=== PATIENT | male | born 1990 | race Two or more races ===

== ENCOUNTER 2024-02-08 09:13 | Emergency (ER) | payer MEDICAID, SELFPAY ==
[2024-02-08 09:42] VITALS: BP 160/94; PULSE 59; RESP 18; TEMP 36.6; O2SAT 97; BMI 25.1
--- NOTE | 2024-02-08 10:16 | XR_ITS ---
Examination: Right femur 2 views Technique one AP lateral right femur 2 views Exam date and time: February 08, 2024 at 1041 hrs. Indications: Patient fell last week with injury to the femur, femur pain Findings: No acute hip fracture or hip dislocation Shaft of the femur intact Ossification versus calcification 25 mm in the medial thigh Impression: No acute femur fracture
--- NOTE | 2024-02-08 10:17 | PD.EDFALL ---
ED Fall Injury RME/HPI General Chief Complaint: Fall Stated Complaint: Fall right leg pain Time Seen by Provider: 02/08/24 09:49 Arrival date/time: 02/08/24 09:13 This is a 33-year-old male that comes in with complaints of fall approximately 1 week ago. Patient states that he tripped over a broom and fell on top of the broom. Patient has pain to right upper lateral thigh. Patient states it looked swollen previously but no longer swollen. Patient denies any other trauma. Patient denies head and neck pain. Related Data Home Medications ?Medication ?Instructions ?Recorded ?Confirmed aspirin 81 mg tablet,delayed 81 mg PO QDAY 06/02/23 10/27/23 release atorvastatin 20 mg tablet 20 mg PO QDAY 06/02/23 10/27/23 buspirone 5 mg tablet 5 mg PO BID 06/02/23 10/27/23 metoprolol succinate 25 mg 25 mg PO QDAY 06/02/23 10/27/23 tablet,extended release 24 hr Previous Rx's ?Medication ?Instructions ?Recorded ibuprofen 600 mg tablet 600 mg PO Q6H PRN pain #10 tabs 02/08/24 Allergies Allergy/AdvReac Type Severity Reaction Status Date / Time No Known Allergies Allergy Verified 10/27/23 09:44 Review of Systems Review of Systems Systems Reviewed: All systems reviewed, normal except as documented Past Medical History Past Medical History CARDIAC: Positive Cardiac Disorders, Heart Murmur, Hypercholesterolemia and Hypertension PSYCHO/SOCIAL: Positive Anxiety Family History FAMILY HISTORY: Negative Family Cardiac Disorders Surgical History SURGICAL: Negative Cardiac Surgery, Endocrine Surgery, Ear Surgery, Abdominal Surgery or Joint Replacement Social History SMOKING STATUS: Never smoker SUBSTANCE USE: does not use ED Exam General General appearance: Present alert and in no apparent distress Head Head exam: Present atraumatic Eye Eye exam: Present normal appearance, PERRL and EOMI ENT ENT exam: Present normal exam, normal oropharynx and mucous membranes moist Neck Neck exam: Present normal inspection, full ROM and trachea midline Chest Chest inspection: Present normal inspection and symmetric chest wall rise Respiratory Respiratory exam: Present normal lung sounds bilaterally Cardiovascular Cardiovascular exam: Present regular rate, normal rhythm and normal heart sounds Abdominal Exam Abdominal exam: Present soft Extremities Exam Extremities exam: Present normal inspection and full ROM Back Exam Back exam: Present normal inspection and full ROM Neurological Exam Neurological exam: Present alert, oriented X3 and CN II-XII intact Psychiatric Psychiatric exam: Present normal affect and normal mood Skin Skin exam: Present warm, dry, intact and normal color Course Quality Measures none Orders Category Date Time Status XR femur RT 2V Stat Exams 02/08/24 10:16 Completed Acetaminophen Tab [Tylenol ES Tab] Med 02/08/24 10:16 Discontinued 1,000 mg PO X1 ONE HYDROcodone*/APAP 5/325 [[place] 5/325] Med 02/08/24 13:13 Discontinued 1 tab PO X1 ONE Ibuprofen Tab [Motrin Tab] Med 02/08/24 10:16 Discontinued 800 mg PO X1 ONE Vital Signs Vital signs: Vital Signs Temperature 97.9 F 02/08/24 09:42 Pulse Rate 59 L 02/08/24 09:42 Respiratory Rate 18 02/08/24 09:42 Blood Pressure 160/94 H 02/08/24 09:42 Pulse Oximetry (%) 97 02/08/24 09:42 Oxygen Delivery Method Room Air 02/08/24 09:42 Fall MDM Narrative MDM Narrative:: This is a 33-year-old male that comes in with complaints of fall approximately 1 week ago. Patient states that he tripped over a broom and fell on top of the broom. Patient has pain to right upper lateral thigh. Patient states it looked swollen previously but no longer swollen. Patient denies any other trauma. Patient denies head and neck pain. femur x ray: Findings: No acute hip fracture or hip dislocation Shaft of the femur intact Ossification versus calcification 25 mm in the medial thigh Impression: No acute femur fracture Pt given norco, and ibuprofen for pain Patient data External records reviewed:: [facility] previous records Clinical information provided by:: patient Social determinants that could affect healthcare access:: none Patient has the following chronic illnesses:: none How is presenting disease/condition affected by chronic disease/condition?: no chronic disease Evaluation data The following diagnostics were reviewed and interpreted by me:: lab results Lab and/or radiology exams considered but not ordered:: see note Interpretation Summary: see note Medications / Prescriptions Medications or Prescriptions considered but not ordered:: none Medication administrations:: Medication Administration History Discontinued Medications Acetaminophen (Acetaminophen 500 Mg Tablet) 1,000 mg PO X1 ONE Stop: 02/08/24 10:17 Last Admin: 02/08/24 10:21 Dose: 1,000 mg Documented By: OA Hydrocodone Bitart/Acetaminophen (Hydrocodone/Apap 5/325 Tablet) 1 tab PO X1 ONE Stop: 02/08/24 13:14 Last Admin: 02/08/24 13:26 Dose: 1 tab Documented By: JOVANI Ibuprofen (Ibuprofen Tab 400 Mg Tablet) 800 mg PO X1 ONE Stop: 02/08/24 10:17 Last Admin: 02/08/24 10:20 Dose: 800 mg Documented By: JOVANI see mar Consultations Consultation(s) initiated? (list below): No Diagnosis Fall Differential Diagnosis: other (leg fracture, sprain, contusion ) Most likely diagnosis given after review of the tests above:: contusion Admission Indicated Admission indicated?: not indicated Admission Request Was there a request for admission?: No Disposition Plan Disposition Plan: Discharge Discharge Attestation Discharge Attestation: The patient and all family members were given an opportunity to ask questions and understood the discharge instructions. Discharge instructions specifically effects, indications for sooner follow up or return to the emergency department, and the expected course of current diagnosis. Patient condition: Stable Discharge Plan Plan Patient Disposition: HOME (Self Care) Patient condition on transfer: Stable Prescriptions/Referrals Prescriptions/Med Rec: New ibuprofen 600 mg tablet 600 mg PO Q6H PRN (Reason: pain) Qty: 10 0RF No Action buspirone 5 mg Tablet 5 mg PO BID atorvastatin 20 mg Tablet 20 mg PO QDAY aspirin 81 mg Tablet,Delayed Release (Dr/Ec) 81 mg PO QDAY metoprolol succinate 25 mg Tablet Extended Release 24 Hr 25 mg PO QDAY Referrals: Gregorio Dave MD [Primary Care Provider] - In 1 week Problem List Clinical Impression: Contusion of leg, right Patient/Caregiver Discharge Instructions Discharge Activity: activity as tolerated Education Materials: ED Contusion, Lower Extremity Additional Instructions: Follow-up with primary provider in 1 to 2 days. Come back to the emergency room if symptoms change or worsen. Print Language: Belarusian Stand Alone Forms: Renetta Award Info., Patient Portal Info Letter PA/SPED TEACHER Supervising Physician MADHAVI/SPED TEACHER Supervising Physician: keira
[2024-02-08] MEDS: IBUPROFEN TAB 400 MG TABLET 800 MG PO (10:20)
[2024-02-08] MEDS: ACETAMINOPHEN 500 MG TABLET 1000 MG PO (10:21)
[2024-02-08] MEDS: HYDROcodone/APAP 5/325 TABLET 1 TAB PO (13:26)
== END 2024-02-08 13:42 | disposition home or self-care (01) ==
PROVIDERS: Emergency Provider Emergency Medicine; PCP Family Medicine
DX: S70.11XA Contusion of right thigh, initial encounter (principal); W01.0XXA Fall on same level from slipping, tripping and stumbling without subsequent striking against object, initial encounter
CPT/HCPCS: 73552; 99283; A9270

== ENCOUNTER 2024-02-12 00:14 | Emergency (ER) | payer MEDICAID, SELFPAY ==
[2024-02-12 00:15] VITALS: BMI 25.1
--- NOTE | 2024-02-12 00:51 | XR_ITS ---
Examination: Right femur 2 views Technique one AP lateral right femur 2 views Exam date and time: February 12, 2024 0120 hours INDICATIONS: Patient slipped and fell 1.5 hours ago with injury to the femur, femur pain FINDINGS: No hip fracture or hip dislocation Shaft of the femur intact Ossification in the soft tissue medial thigh IMPRESSION: No acute fracture
[2024-02-12 00:55] VITALS: BP 151/101; PULSE 59; RESP 19; TEMP 36.7; O2SAT 98
[2024-02-12] MEDS: IBUPROFEN TAB 400 MG TABLET 800 MG PO (01:00)
--- NOTE | 2024-02-12 04:39 | PD.EDLOWEX ---
Lower Extremity Injury RME/HPI General Chief Complaint: Extremity Injury, Lower Stated Complaint: RT KNEE PAIN, S/P FALL X1 WEEK Time Seen by Provider: 02/12/24 00:43 Arrival date/time: 02/12/24 00:14 RME / HPI RME / HPI Narrative: This section includes all my notes and documentations, including HPI, PE, and ED course. Tod Zelaya MD HPI: 33-year-old male here to be evaluated with right leg injury just prior to arrival. While horsing around, he almost fell to the right. Ever since, he reports severe pain in the right leg, especially in the right knee. Has trouble weightbearing due to the pain. No other complaints. ROS: All negative except as documented in HPI. Physical Exam: General: Alert and oriented. No acute distress when remaining still. Eyes: Conjunctivae and lids clear. ENT: No nasal congestion. Neck: Supple. Lungs: No respiratory distress. Back: No CVA tenderness. Skin: Warm and dry. Neuro: Alert and oriented X 3. Right Leg: Equivocal tenderness in the proximal half of the lower leg. Equivocal tenderness in the right knee with edema and limited range of motion. My interpretation of the right femur x-rays is no acute fracture, official radiology report is pending. At this point, diagnoses include right leg strain and right knee sprain. Treatment here included knee immobilizer and crutches and ibuprofen. Recommended a trial of conservative treatment. Based on my best medical judgment, made decision no further evaluation or treatment indicated at this time. Patient understands and agrees to the discharge instructions customized and printed, see below. Discharge Instructions from Dr. Zelaya: --After evaluation, there is no evidence of any broken bone. --You sprained your right leg and right knee.? This means small tears to your soft structures, such as [id number]-cartilage.? --To help the healing process, no weight bearing (knee immobilizer and crutches) and elevate above waist level for 3 days as much as possible.?? --Apply ice for 20 minutes every 2-3 hours today and tomorrow.? --Take Ibuprofen 800 mg every 6-8 hours today and tomorrow to help decrease swelling then as needed.? --Most importantly, see a private doctor on 02/16/2024 for recheck and further care. Ask to review the official radiology reports, to make sure you receive all necessary follow-ups and monitoring. If you are not better, you will need more care not available here in the ER--such as MRI imaging.? To make sure you don't have major tears needing surgery--cannot see big tears on x-rays.?? --Seek immediate medical care with any concerns.?? Tod Zelaya MD Related Data Home Medications ?Medication ?Instructions ?Recorded ?Confirmed aspirin 81 mg tablet,delayed 81 mg PO QDAY 06/02/23 10/27/23 release atorvastatin 20 mg tablet 20 mg PO QDAY 06/02/23 10/27/23 buspirone 5 mg tablet 5 mg PO BID 06/02/23 10/27/23 metoprolol succinate 25 mg 25 mg PO QDAY 06/02/23 10/27/23 tablet,extended release 24 hr Previous Rx's ?Medication ?Instructions ?Recorded ibuprofen 600 mg tablet 600 mg PO Q6H PRN pain #10 tabs 02/08/24 Allergies Allergy/AdvReac Type Severity Reaction Status Date / Time No Known Allergies Allergy Verified 10/27/23 09:44 Course Quality Measures none Orders Category Date Time Status Apply knee immobilizer NOW Care 02/12/24 01:33 Active Crutches .NOW Care 02/12/24 01:33 Active Miscellaneous Nursing Order NOW Care 02/12/24 00:51 Active XR femur RT 2V Stat Exams 02/12/24 00:51 Taken Ibuprofen Tab [Motrin Tab] Med 02/12/24 00:51 Discontinued 800 mg PO X1 ONE Vital Signs Vital signs: Vital Signs Temperature 98.1 F 02/12/24 00:55 Pulse Rate 59 L 02/12/24 00:55 Respiratory Rate 19 02/12/24 00:55 Blood Pressure 151/101 H 02/12/24 00:55 Pulse Oximetry (%) 98 02/12/24 00:55 Oxygen Delivery Method Room Air 02/12/24 00:55 Extremity Injury, Lower Patient data External records reviewed:: [facility] previous records Clinical information provided by:: patient Social determinants that could affect healthcare access:: none Patient has the following chronic illnesses:: None How is presenting disease/condition affected by chronic disease/condition?: no chronic disease Evaluation data The following diagnostics were reviewed and interpreted by me:: radiology exam(s) Lab and/or radiology exams considered but not ordered:: None Interpretation Summary: Right leg/knee sprain/strain Medications / Prescriptions Medications or Prescriptions considered but not ordered:: None Medication administrations:: Medication Administration History Discontinued Medications Ibuprofen (Ibuprofen Tab 400 Mg Tablet) 800 mg PO X1 ONE Stop: 02/12/24 00:52 Last Admin: 02/12/24 01:00 Dose: 800 mg Documented By: Ibuprofen Consultations Consultation(s) initiated? (list below): No Diagnosis Extremity Injury, Lower Differential Diagnosis: other (Right leg/knee sprain/strain/contusion/fracture) Most likely diagnosis given after review of the tests above:: Right leg/knee sprain/strain Admission Indicated Admission indicated?: not indicated Explain why admission is indicated or not indicated:: Admission criteria not met Admission Request Was there a request for admission?: No Disposition Plan Disposition Plan: Discharge Discharge Attestation Discharge Attestation: The patient and all family members were given an opportunity to ask questions and understood the discharge instructions. Discharge instructions specifically effects, indications for sooner follow up or return to the emergency department, and the expected course of current diagnosis. Patient condition: Stable Discharge Plan Plan Patient Disposition: HOME (Self Care) Prescriptions/Referrals Prescriptions/Med Rec: No Action buspirone 5 mg Tablet 5 mg PO BID atorvastatin 20 mg Tablet 20 mg PO QDAY aspirin 81 mg Tablet,Delayed Release (Dr/Ec) 81 mg PO QDAY metoprolol succinate 25 mg Tablet Extended Release 24 Hr 25 mg PO QDAY ibuprofen 600 mg tablet 600 mg PO Q6H PRN (Reason: pain) Qty: 10 0RF Problem List Clinical Impression: Right knee sprain, Strain of right hip and thigh Patient/Caregiver Discharge Instructions Discharge Activity: activity as tolerated Education Materials: ED Knee Sprain, ED Muscle Strain, Extremity Additional Instructions: Discharge Instructions from Dr. Zelaya: --After evaluation, there is no evidence of any broken bone. --You sprained your right leg and right knee.? This means small tears to your soft structures, such as [id number]-cartilage.? --To help the healing process, no weight bearing (knee immobilizer and crutches) and elevate above waist level for 3 days as much as possible.?? --Apply ice for 20 minutes every 2-3 hours today and tomorrow.? --Take Ibuprofen 800 mg every 6-8 hours today and tomorrow to help decrease swelling then as needed.? --Most importantly, see a private doctor on 02/16/2024 for recheck and further care. Ask to review the official radiology reports, to make sure you receive all necessary follow-ups and monitoring. If you are not better, you will need more care not available here in the ER--such as MRI imaging.? To make sure you don't have major tears needing surgery--cannot see big tears on x-rays.?? --Seek immediate medical care with any concerns.?? Print Language: [place] Islander Stand Alone Forms: Renetta Award Info., Patient Portal Info Letter
== END 2024-02-12 01:49 | disposition home or self-care (01) ==
LOC: SERX 01:56
PROVIDERS: Emergency Provider Emergency Medicine
DX: S83.91XA Sprain of unspecified site of right knee, initial encounter (principal); S76.011A Strain of muscle, fascia and tendon of right hip, initial encounter; S76.911A Strain of unspecified muscles, fascia and tendons at thigh level, right thigh, initial encounter; W19.XXXA Unspecified fall, initial encounter; Y93.83 Activity, rough housing and horseplay
CPT/HCPCS: 73552; 99283; A9270

== ENCOUNTER 2024-06-29 15:26 | Emergency (ER) | payer MEDICAID, SELFPAY ==
[2024-06-29 15:28] VITALS: BMI 25.1
--- NOTE | 2024-06-29 15:35 | PC.NURSE ---
no answer in lobby when called for ekg and vital signs
--- NOTE | 2024-06-29 16:00 | PC.NURSE ---
no answer in lobby when called for ekg and vital signs
--- NOTE | 2024-06-29 16:22 | PC.NURSE ---
called for pt from lobby/outside, no answerx1@ [id number]
--- NOTE | 2024-06-29 16:27 | PC.NURSE ---
no answer in lobby when called for ekg and vital signs
== END 2024-06-29 16:27 | disposition left against medical advice (07) ==
LOC: SERX 16:40
PROVIDERS: Emergency Provider Emergency Medicine
DX: Z53.21 Procedure and treatment not carried out due to patient leaving prior to being seen by health care provider (principal)

== ENCOUNTER 2024-09-18 21:29 | Emergency (ER) | payer MEDICAID, SELFPAY ==
[2024-09-18 21:31] VITALS: BMI 25.2
[2024-09-18 21:40] VITALS: BP 130/85; PULSE 92; RESP 18; TEMP 37.1; O2SAT 99
--- NOTE | 2024-09-18 21:43 | PD.EDABDPN ---
ED Abdominal Pain RME/HPI General Chief Complaint: Abdominal Pain Stated complaint: ABD PAIN AND DIARRHEA Time seen by provider: 09/18/24 22:19 Arrival date/time: 09/18/24 21:29 RME / HPI RME / HPI narrative: This section includes all my notes and documentations, including HPI, PE, and ED course. Tod Zelaya MD HPI: 34 y/o male with Hx of HTN and Anxiety presents with lower abdominal pain and diarrhea x 3 days. Denies vomiting. No other complaints. ROS: All negative except as documented in HPI. Physical Exam: General: Alert and oriented. No acute distress when remaining still. Eyes: Conjunctivae and lids clear. ENT: No nasal congestion. Neck: Supple. Heart: RRR. Lungs: No respiratory distress. Good air movement. No rhonchi, wheezing, rales. Abdomen: Soft and nontender. Normal bowel sounds. No distension. No rebound or guarding. Back: No CVA tenderness. Skin: Warm and dry. Neuro: Alert and oriented X 3. I reviewed all diagnostic test results: My review of the Gall Bladder US report is: NAD. My review of the Abdomen/Pelvis CT report is: NAD. Blood tests unremarkable except K 3.3. Covid/Influenza: Negative. At this point, diagnoses include: Stomach flu Treatment here included: IVF, Toradol 30 mg, Morphine 4 mg, Zofran 4 mg, and oral KCl 40 mEq. Significant improvement noted. Recommended supportive care. Based on my best medical judgment, made decision no further evaluation or treatment indicated at this time. Patient understands and agrees to the discharge instructions customized and printed, see below. Discharge Instructions from Dr. Zelaya: 1. After evaluation, you have stomach flu.? See attached handout on gastroenteritis. 2. This is caused by virus germs.? And we do not have good medications to kill the virus germs.? But your immune system will fight it off. 3. Your job is to stay hydrated.? Zofran for nausea/vomiting.? Increase oral fluid and maintain clear urine.? If dark or yellow, increase oral fluid. 4. Do not take any medications to stop your diarrhea.? But try to replenish the fluid and electrolytes you are losing. 5. Some good choices are water (but not only water because it will cause electrolyte abnormalities), sports drinks like Gatorade (with less sugar content), coconut water, chicken stock, and other fluid with electrolytes (like Pedialyte). 6. See your private doctor on 09/22/24 if not completely better.? 7. Seek immediate medical care with worsening or with any concerns. Tod Zelaya MD Related Data Home Medications ?Medication ?Instructions ?Recorded ?Confirmed aspirin 81 mg tablet,delayed 81 mg PO QDAY 06/02/23 10/27/23 release atorvastatin 20 mg tablet 20 mg PO QDAY 06/02/23 10/27/23 buspirone 5 mg tablet 5 mg PO BID 06/02/23 10/27/23 metoprolol succinate 25 mg 25 mg PO QDAY 06/02/23 10/27/23 tablet,extended release 24 hr Previous Rx's ?Medication ?Instructions ?Recorded ibuprofen 600 mg tablet 600 mg PO Q6H PRN pain #10 tabs 02/08/24 ivermectin 3 mg tablet 12 mg (4 x 3 mg) PO QWEEK 2 doses 09/19/24 #8 tabs ketorolac 10 mg tablet 10 mg PO Q8H PRN pain 5 days #10 09/19/24 tabs ondansetron 4 mg disintegrating 4 mg PO TID PRN nausea and 09/19/24 tablet vomiting 30 days #10 tabs Allergies Allergy/AdvReac Type Severity Reaction Status Date / Time No Known Allergies Allergy Verified 09/18/24 21:36 Review of Systems Review of Systems Systems Reviewed: All systems reviewed, normal except as documented Past Medical History Past Medical History CARDIAC: Positive Cardiac Disorders, Heart Murmur, Hypercholesterolemia and Hypertension PSYCHO/SOCIAL: Positive Anxiety ED Exam Narrative Physical exam: Refer to HPI Course Quality Measures none Orders Category Date Time Status Bedside COVID-19 Antigen Test NOW Care 09/18/24 21:44 Completed Bedside Influenza A&B Antigen Test NOW Care 09/18/24 21:44 Completed Saline [Insert IV] NOW Care 09/18/24 21:[address] abdomen pelvis wo con Stat Exams 09/18/24 21:45 Completed US gall bladder Stat Exams 09/18/24 21:45 Completed Amylase Stat Lab 09/18/24 22:06 Completed Bilirubin,Direct Stat Lab 09/18/24 22:06 Completed CBC Stat Lab 09/18/24 22:06 Completed CMP [Comprehensive Metabolic Panel] Stat Lab 09/18/24 22:06 Completed Lipase Stat Lab 09/18/24 22:06 Completed Magnesium Stat Lab 09/18/24 22:06 Completed KCL 10% Liq UDC 15 ML Med 09/18/24 23:25 Discontinued 40 meq PO X1 ONE Ketorolac Inj [Toradol Inj] Med 09/18/24 21:44 Discontinued 30 mg IVP X1 ONE Morphine Inj Med 09/18/24 21:44 Discontinued 4 mg IVP X1 ONE Ondansetron Inj [Zofran Inj] Med 09/18/24 21:44 Discontinued 4 mg IVP X1 ONE Sodium Chloride 0.9% 1000 ml [Ns] 1,000 ml Med 09/18/24 21:44 Discontinued IV 999 mls/hr Sodium Chloride 0.9% 1000 ml [Ns] 1,000 ml Med 09/18/24 23:25 Discontinued IV 999 mls/hr Vital Signs Vital signs: Vital Signs Temperature 98.7 F 09/18/24 21:40 Pulse Rate 92 09/18/24 21:40 Respiratory Rate 18 09/18/24 21:40 Blood Pressure 130/85 H 09/18/24 21:40 Pulse Oximetry (%) 99 09/18/24 21:40 Oxygen Delivery Method Room Air 09/18/24 21:40 Abdominal Pain MDM MDM Narrative MDM Narrative:: Scribe Attestation: Sari Anaya am scribing for and in the presence of Dr. Zelaya. Provider Notation: Although this document has been carefully reviewed, there may still be some phonetic and other typographical errors.? These errors are purely grammatical due to imperfections in the software program and should not be construed in any way to? compromise the substance of the patient's medical care during this visit. 34 y/o male with Hx of HTN and Anxiety presents with lower abdominal pain and diarrhea x 3 days. Denies vomiting. No other complaints. Patient data External records reviewed:: [facility] previous records (Reviewed prior ED records from 02/08/24. Patient was seen for Contusion of leg, right.) Clinical information provided by:: patient Social determinants that could affect healthcare access:: mental health (Anxiety) Patient has the following chronic illnesses:: Anxiety, Heart Murmur, HTN How is presenting disease/condition affected by chronic disease/condition?: exacerbated by Evaluation data The following diagnostics were reviewed and interpreted by me:: lab results and radiology exam(s) Lab and/or radiology exams considered but not ordered:: None Interpretation Summary: I reviewed all diagnostic test results: My review of the Gall Bladder US report is: NAD. My review of the Abdomen/Pelvis CT report is: NAD. Blood tests unremarkable except K 3.3. Covid/Influenza: Negative. Medications / Prescriptions Medications or Prescriptions considered but not ordered:: None Medication administrations:: Medication Administration History Discontinued Medications Sodium Chloride (Ns) 1,000 mls @ 999 mls/hr IV .Q1H1M ONE Stop: 09/18/24 22:44 Last Infusion: 09/18/24 23:48 Dose: Infused Documented By: Admin: 09/18/24 22:47 Dose: 999 mls/hr Documented By: Sodium Chloride (Ns) 1,000 mls @ 999 mls/hr IV .Q1H1M ONE Stop: 09/19/24 00:25 Last Admin: 09/19/24 00:17 Dose: 999 mls/hr Documented By: MANDY Ketorolac Tromethamine (Ketorolac Inj 30 Mg/Ml Vial) 30 mg IVP X1 ONE Stop: 09/18/24 21:45 Last Admin: 09/18/24 22:48 Dose: 30 mg Documented By: SE Morphine Sulfate (Morphine Sulf Inj 10 Mg/Ml Vial) 4 mg IVP X1 ONE Stop: 09/18/24 21:45 Last Admin: 09/18/24 22:47 Dose: 4 mg Documented By: Ondansetron HCl (Ondansetron Inj 2 Mg/Ml Inj 2 Ml) 4 mg IVP X1 ONE; Protocol Stop: 09/18/24 21:45 Last Admin: 09/18/24 22:50 Dose: 4 mg Documented By: SE Potassium Chloride (Potassium Chloride 10% 20 Meq/15 Ml Udc) 40 meq PO X1 ONE Stop: 09/18/24 23:26 Last Admin: 09/19/24 00:16 Dose: 40 meq Documented By: CG IVF, Toradol 30 mg, Morphine 4 mg, Zofran 4 mg, and oral KCl 40 mEq. Consultations Consultation(s) initiated? (list below): No Diagnosis Differential diagnosis abdominal pain: abdominal pain, acute appendicitis, calculus of kidney, diverticulitis, gastroenteritis and other (COVID-19, Influenza A vs B) Most likely diagnosis given after review of the tests above:: Stomach flu Admission Indicated Admission indicated?: not indicated Explain why admission is indicated or not indicated:: With significant improvement and no condition needing emergent intervention, there was no indication for admission. Admission Request Was there a request for admission?: No Disposition Plan Disposition Plan: Discharge Discharge Attestation Discharge Attestation: The patient and all family members were given an opportunity to ask questions and understood the discharge instructions. Discharge instructions specifically effects, indications for sooner follow up or return to the emergency department, and the expected course of current diagnosis. Patient condition: Stable Discharge Plan Plan Patient Disposition: HOME (Self Care) Prescriptions/Referrals Prescriptions/Med Rec: New ivermectin 3 mg tablet 12 mg PO QWEEK Qty: 8 0RF ketorolac 10 mg tablet 10 mg PO Q8H PRN (Reason: pain) 5 Days Qty: 10 0RF ondansetron 4 mg tablet,disintegrating 4 mg PO TID PRN (Reason: nausea and vomiting) 30 Days Qty: 10 0RF No Action buspirone 5 mg Tablet 5 mg PO BID atorvastatin 20 mg Tablet 20 mg PO QDAY aspirin 81 mg Tablet,Delayed Release (Dr/Ec) 81 mg PO QDAY metoprolol succinate 25 mg Tablet Extended Release 24 Hr 25 mg PO QDAY ibuprofen 600 mg tablet 600 mg PO Q6H PRN (Reason: pain) Qty: 10 0RF Referrals: No Primary/Family,Physician [Primary Care Provider] - In 1 week Problem List Clinical Impression: Stomach flu Patient/Caregiver Discharge Instructions Discharge Activity: activity as tolerated Education Materials: ED Gastroenteritis, Viral (Adult) Additional Instructions: Discharge Instructions from Dr. Zelaya: 1. After evaluation, you have stomach flu.? See attached handout on gastroenteritis. 2. This is caused by virus germs.? And we do not have good medications to kill the virus germs.? But your immune system will fight it off. 3. Your job is to stay hydrated.? Zofran for nausea/vomiting.? Increase oral fluid and maintain clear urine.? If dark or yellow, increase oral fluid. 4. Do not take any medications to stop your diarrhea.? But try to replenish the fluid and electrolytes you are losing. 5. Some good choices are water (but not only water because it will cause electrolyte abnormalities), sports drinks like Gatorade (with less sugar content), coconut water, chicken stock, and other fluid with electrolytes (like Pedialyte). 6. See your private doctor on 09/22/24 if not completely better.? 7. Seek immediate medical care with worsening or with any concerns. Instrucciones de jennifer del Dr. Zelaya: 1. Despu?s de la evaluaci?n, tiene gastroenteritis. Consulte el folleto adjunto sobre gastroenteritis. 2. Esta es causada por virus. No contamos con medicamentos eficaces para eliminarlos, chapis leyva sistema inmunitario la combatir?. 3. Leyva deber es mantenerse hidratado. Zofran para las n?useas y los v?mitos. Aumente la ingesta de l?quidos y mantenga la orina bunny. Si la orina es oscura o amarilla, aumente la ingesta de l?quidos. 4. No tome diana?n medicamento para detener la diarrea. Intente reponer los l?quidos y electrolitos que est? perdiendo. 5. Algunas buenas opciones son el agua (chapis no solo agua, ya que puede causar anomal?as electrol?jennifer), las bebidas deportivas angela Gatorade (con menos az?car), el agua de aleksandar, el caldo de santana y otros l?quidos con electrolitos (angela Pedialyte). 6. Consulte a leyva m?dico el 07/25/24 si no mejora por completo. 7. Busque atenci?n m?dica inmediata si empeora o tiene alguna inquietud. Print Language: Dutch Stand Alone Forms: Renetta Award Info., Patient Portal Info Letter
--- NOTE | 2024-09-18 21:45 | XR_ITS ---
Examination: CT abdomen and pelvis without contrast. Coronal 3-D reconstructions. Sagittal 2-D reconstructions. Date and time of exam:September 18, 2024 2145 hours Comparison February 20, 2023 INDICATIONS: Abdominal pain and diarrhea beginning 3 days ago CTDI: vol (mGy): 6.29 DLP: (mGycm): 368 Technique: Axial images of the abdomen have been obtained, 3 mm slice thickness Intravenous contrast material has not been administered. Low dose protocols were performed. One or more of the following dose reduction techniques were used; automated exposure control, adjustment of the mA and/or KV according to patient size, use of iterative reconstruction technique. Findings: No focal liver or splenic lesions Contracted gallbladder No pancreatic or adrenal mass. No renal or ureteral calculi, no hydronephrosis Aorta normal size 12 mm fat-containing umbilical hernia Normal appendix No bowel obstruction No nonspecific colitis pattern no diverticulitis No prostatomegaly Contracted urinary bladder Mild disc narrowing L5-S1 IMPRESSION: No acute process in the abdomen or pelvis
--- NOTE | 2024-09-18 21:45 | XR_ITS ---
Examination: Abdomen sonogram, Limited Date and time of exam: September 18, 2024 11:20 PM INDICATIONS: Diarrhea and abdominal pain today Technique: Real-time graham scale transabdominal sonographic images of the upper abdomen obtained. Findings: Normal gallbladder Normal common bile duct 0.3 cm Pancreatic head 2.5 cm Liver 16.2 cm no focal liver lesions Normal hepatopedal portal venous flow Patent IVC IMPRESSION: Normal gallbladder. No focal liver lesions
[2024-09-18 22:16] LABS: Basophils # (Auto) 0.0 Thou/mm3 (0.0-0.2); Basophils % (Auto) 0 % (0-2.5); Eosinophils # (Auto) 0.1 Thou/mm3 (0.0-0.5); Eosinophils % (Auto) 1 % (0-10); Hematocrit 44.6 % (41.0-53.0); Hemoglobin 15.3 g/dL (13.5-16.0); Immature Granulocytes Auto 0.03 Thou/mm3 (0.00-0.00); Lymphocytes # (Auto) 1.3 Thou/mm3 (1.0-4.8); Lymphocytes % (Auto) 14 % (10-50); Mean Corpuscular HGB Conc 34.3 g/dl (31.0-37.0); Mean Corpuscular Hemoglobin 30.7 pg (25.0-35.0); Mean Corpuscular Volume 90 fL (80-100); Monocytes # (Auto) 1.0 Thou/mm3 (0.0-0.8); Monocytes % (Auto) 10 % (0-12); Neutrophils # (Auto) 7.0 Thou/mm3 (1.8-7.7); Neutrophils % (Auto) 74 % (37-80); Nucleated Red Blood Cell # 0.00 Thou/mm3 (0.00-0.00); Nucleated Red Blood Cell % 0 /100 WBC (0); Platelet Count 192 Thou/mm3 (140-440); RDW Standard Deviation 41.1 fL (35.1-43.9); Red Blood Count 4.98 Miln/mm3 (4.50-5.90); White Blood Count 9.4 Thou/mm3 (3.8-10.6)
[2024-09-18] MEDS: SODIUM CHLORIDE 0.9% 1000 ML 1,000 ML 999 ML IV (22:47)
[2024-09-18] MEDS: MORPHINE SULF INJ 10 MG/ML VIAL 4 MG IVP (22:47)
[2024-09-18] MEDS: KETOROLAC INJ 30 MG/ML VIAL IVP (22:48)
[2024-09-18] MEDS: ONDANSETRON INJ 2 MG/ML INJ 2 ML 4 MG IVP (22:50)
[2024-09-18 23:04] LABS: Alanine Aminotransferase 17 U/L (10-49); Albumin, Serum 4.6 gm/dL (3.5-5.0); Albumin/Globulin Ratio 1.9 (1.2-2.2); Alkaline Phosphatase 62 U/L (46-116); Anion Gap 9 (7-16); Aspartate Amino Transferase 30 U/L (0-34); BUN/Creatinine Ratio 8 Ratio (12-20); Bilirubin,Direct 0.2 mg/dL (0.0-0.3); Bilirubin,Total 0.6 mg/dL (0.3-1.2); Blood Urea Nitrogen 9 mg/dL (9-23); Calcium 9.4 mg/dL (8.3-10.6); Calcium (Corrected) 9.4 mg/dL (8.5-10.1); Carbon Dioxide 28.3 mMol/L (20.0-31.0); Chloride 103 mMol/L (98-107); Creatinine (Component) 1.2 mg/dL (0.6-1.3); Estimated Creatinine Clearance 90.4 mL/min (>60); Globulin 2.4 gm/dL (2.3-3.5); Glucose 87 mg/dL (74-106); Magnesium 2.2 mg/dL (1.6-2.6); Osmolality,Calculated 277 (275-295); Potassium 3.3 mMol/L (3.4-5.1); Sodium 140 mMol/L (136-145); Total Protein 7.0 gm/dL (5.7-8.2); eGFR > 60 See Note
[2024-09-19 00:15] LABS: Amylase 50 U/L (30-118); Lipase 27 U/L (12-53)
[2024-09-19] MEDS: POTASSIUM CHLORIDE 10% 20 MEQ/15 ML UDC 40 MEQ PO (00:16)
[2024-09-19] MEDS: SODIUM CHLORIDE 0.9% 1000 ML 1,000 ML 999 ML IV (00:17)
[2024-09-19 00:28] VITALS: BP 123/71; PULSE 88; RESP 16; TEMP 36.8; O2SAT 98
[2024-09-19 01:03] VITALS: BP 137/80; PULSE 78; RESP 17; TEMP 36.5; O2SAT 98
== END 2024-09-19 01:37 | disposition home or self-care (01) ==
PROVIDERS: Emergency Provider Emergency Medicine
DX: A08.4 Viral intestinal infection, unspecified (principal)
CPT/HCPCS: 36415; 74176; 76705; 80053; 82150; 82248; 83690; 83735; 85025; 87400; 87811; 96361; 96374; 96375; 99283; J1885; J2270; J2405; J7030; A9270

== ENCOUNTER 2024-11-02 21:34 | Observation (INO) | payer MEDICAID, SELFPAY ==
[2024-11-02 21:50] VITALS: BP 160/95; PULSE 66; RESP 18; TEMP 37.6; O2SAT 99; BMI 26.6
--- NOTE | 2024-11-02 21:58 | XR_ITS ---
Examination: CT abdomen with intravenous contrast CT pelvis with intravenous contrast 2-D coronal reconstructions 2-D sagittal reconstructions Date and time of exam:November 02, 2024 11:20 PM Indications: Severe mid abdominal pain beginning 2 days ago Comparison: September 18, 2024. CTDI: vol (mGy) 9.24 DLP: (mGycm) 378 Technique: Multiple axial sections of the abdomen and pelvis have been obtained. 64 slice high-resolution scanner used. 3 mm axial sections have been obtained, post intravenous injection 60 cc [id number] 2-D sagittal, coronal reconstructions obtained. Low dose protocols were performed. One or more of the following dose reduction techniques were used; automated exposure control, adjustment of the mA and/or KV according to patient size, use of iterative reconstruction technique. Findings: No focal liver or splenic lesion No gallstones No pancreatic or adrenal mass No renal or ureteral calculi, no hydronephrosis Aorta normal size Minute fat-containing umbilical hernia No bowel obstruction Acute appendicitis, coronal image 46, inflamed enlarged appendix below and medial to the cecum No pelvic abscess Impression: Acute appendicitis No pelvic abscess
--- NOTE | 2024-11-02 22:00 | PD.EDRME ---
Rapid Medical Screening Exam E Arrival date/time: 11/02/24 21:34 34M with history of STEMI presents to ED with several days of RLQ pain. Patient denies dysuria. Chief Complaint: Abdominal Pain Vital signs: Vital Signs Temperature 99.6 F 11/02/24 21:50 Pulse Rate 66 11/02/24 21:50 Respiratory Rate 18 11/02/24 21:50 Blood Pressure 160/95 H 11/02/24 21:50 Pulse Oximetry (%) 99 11/02/24 21:50 Oxygen Delivery Method Room Air 11/02/24 21:50
[2024-11-02] MEDS: ONDANSETRON INJ 2 MG/ML INJ 2 ML 4 MG IV (22:20)
[2024-11-02] MEDS: MORPHINE SULF INJ 4 MG/ML VIAL IV (22:21)
[2024-11-02 22:24] LABS: Lactate (Lactic Acid) 0.7 mMol/L (0.4-2.0)
[2024-11-02 22:27] LABS: Basophils # (Auto) 0.0 Thou/mm3 (0.0-0.2); Basophils % (Auto) 0 % (0-2.5); Eosinophils # (Auto) 0.3 Thou/mm3 (0.0-0.5); Eosinophils % (Auto) 3 % (0-10); Hematocrit 46.8 % (41.0-53.0); Hemoglobin 15.9 g/dL (13.5-16.0); Immature Granulocytes Auto 0.04 Thou/mm3 (0.00-0.00); Lymphocytes # (Auto) 2.1 Thou/mm3 (1.0-4.8); Lymphocytes % (Auto) 18 % (10-50); Mean Corpuscular HGB Conc 34.0 g/dl (31.0-37.0); Mean Corpuscular Hemoglobin 30.1 pg (25.0-35.0); Mean Corpuscular Volume 89 fL (80-100); Monocytes # (Auto) 0.9 Thou/mm3 (0.0-0.8); Monocytes % (Auto) 8 % (0-12); Neutrophils # (Auto) 8.5 Thou/mm3 (1.8-7.7); Neutrophils % (Auto) 72 % (37-80); Nucleated Red Blood Cell # 0.00 Thou/mm3 (0.00-0.00); Nucleated Red Blood Cell % 0 /100 WBC (0); Platelet Count 264 Thou/mm3 (140-440); RDW Standard Deviation 41.5 fL (35.1-43.9); Red Blood Count 5.28 Miln/mm3 (4.50-5.90); White Blood Count 11.8 Thou/mm3 (3.8-10.6)
[2024-11-02 22:51] LABS: Alanine Aminotransferase 32 U/L (10-49); Albumin, Serum 4.3 gm/dL (3.5-5.0); Albumin/Globulin Ratio 2.0 (1.2-2.2); Alkaline Phosphatase 68 U/L (46-116); Amylase 70 U/L (30-118); Anion Gap 8 (7-16); Aspartate Amino Transferase 37 U/L (0-34); BUN/Creatinine Ratio 7 Ratio (12-20); Bilirubin,Total 0.7 mg/dL (0.3-1.2); Blood Urea Nitrogen 7 mg/dL (9-23); Calcium 9.1 mg/dL (8.3-10.6); Calcium (Corrected) 9.1 mg/dL (8.5-10.1); Carbon Dioxide 29.6 mMol/L (20.0-31.0); Chloride 103 mMol/L (98-107); Creatinine (Component) 1.0 mg/dL (0.6-1.3); Estimated Creatinine Clearance 105.1 mL/min (>60); Globulin 2.2 gm/dL (2.3-3.5); Glucose 89 mg/dL (74-106); Osmolality,Calculated 278 (275-295); Potassium 4.4 mMol/L (3.4-5.1); Procalcitonin 0.06 ng/ml (0.0-0.49); Sodium 141 mMol/L (136-145); Total Protein 6.5 gm/dL (5.7-8.2); eGFR > 60 See Note
[2024-11-02 23:16] LABS: Collection Type, Urine Clean Catch; WBC,Urine 0 /hpf (0-5)
[2024-11-02 23:21] LABS: Amorphous Crystals,Urine Present (Absent); Bilirubin,Urine Negative (Negative); Blood,Urine Negative (Negative); Clarity,Urine Turbid (Clear/Hazy); Color,Urine Yellow (Lt Yel-Yel); Culture Indicated,Urine Not Indicated; Glucose, Urine Negative (Negative); Ketones,Urine Negative (Negative); Leukocyte Esterase,Urine Negative (Negative); Nitrite,Urine Negative (Negative); PH,Urine 7.5 (5.0-7.0); Protein,Urine Trace (Neg - Trace); RBC,Urine 1 /hpf (0-3); Specific Gravity,Urine 1.027 (1.001-1.035); Squamous Epithelial Cell,Urine < 1 /hpf (0-5); Urobilinogen,Urine 2.0 mg/dL (0.0-1.0)
[2024-11-02 23:25] LABS: Amphetamine/Methamp Scrn,U Negative (Negative); Barbiturate Screen,Urine Negative (Negative); Benzodiazepines Screen,Urine Negative (Negative); Benzoylecgonine Screen, Ur Negative (Negative); Fentanyl Screen,Urine Negative (Negative); Opiate Screen,Urine Negative (Negative); THC Screen,Urine Negative (Negative)
[2024-11-03] VITALS (13 sets, daily range): BP systolic 123–158; BP diastolic 63–89; PULSE 68–92; RESP 12–98; TEMP 36.1–37.2; O2SAT 94–100; BMI 25.8
--- NOTE | 2024-11-03 00:28 | PD.EDABDPN ---
ED Abdominal Pain RME/HPI General Chief Complaint: Abdominal Pain Stated complaint: MID ABDOMINAL PAIN Arrival date/time: 11/02/24 21:34 RME / HPI RME / HPI narrative: 11/02/24 21:34 34M with history of STEMI presents to ED with several days of RLQ pain. Patient denies dysuria. -------- Dr. Ramirez?s Main ED Evaluation: 34yo male with a history of STEMI, HTN presents to the ED for a chief complaint of RLQ pain x yesterday. No radiation or migration. Patient states his pain got progressively worse today. He denies any fever, chills, nausea, vomiting, or any other associated symptoms. No previous abdominal surgeries. NKA. Related Data Home Medications ?Medication ?Instructions ?Recorded ?Confirmed aspirin 81 mg tablet,delayed 81 mg PO QDAY 06/02/23 10/27/23 release atorvastatin 20 mg tablet 20 mg PO QDAY 06/02/23 10/27/23 buspirone 5 mg tablet 5 mg PO BID 06/02/23 10/27/23 metoprolol succinate 25 mg 25 mg PO QDAY 06/02/23 10/27/23 tablet,extended release 24 hr Previous Rx's ?Medication ?Instructions ?Recorded ibuprofen 600 mg tablet 600 mg PO Q6H PRN pain #10 tabs 02/08/24 ivermectin 3 mg tablet 12 mg (4 x 3 mg) PO QWEEK 2 doses 09/19/24 #8 tabs Allergies Allergy/AdvReac Type Severity Reaction Status Date / Time No Known Allergies Allergy Verified 09/18/24 21:36 Review of Systems Review of Systems Systems Reviewed: All systems reviewed, normal except as documented Past Medical History Past Medical History NEUROLOGIC: Negative Neurological Disorders CARDIAC: Positive Cardiac Disorders (Heart Murmur), Heart Murmur, Hypercholesterolemia and Hypertension; Negative Congestive Heart Failure RESPIRATORY: Negative Chronic Obstructive Pulmonary Disease (COPD) or Asthma GASTROINTESTINAL: Negative Gastrointestinal Disorders GENITOURINARY: Negative Genitourinary Disorders or Renal Disease MUSCULOSKELETAL: Negative Musculoskeletal Disorders ENDOCRINE: Negative Endocrine Disorders, Diabetes Mellitus Type 1 or Diabetes Mellitus Type 2 HEMATOLOGIC: Negative Blood Disorders or Sickle Cell Disease PSYCHO/SOCIAL: Positive Anxiety OTHER HISTORY: Negative Autoimmune Disease, Anesthesia Reactions or MRSA Family History FAMILY HISTORY: Negative Family Cardiac Disorders Surgical History SURGICAL: Negative Cardiac Surgery, Endocrine Surgery, Ear Surgery, Abdominal Surgery or Joint Replacement Social History SMOKING STATUS: Never smoker SUBSTANCE USE: does not use ED Exam Narrative Physical exam: Generally patient is alert and in no obvious distress, heart regular rate and rhythm, lungs clear to auscultation equal bilaterally, abdomen soft bowel sounds present nondistended McBurney's point tenderness with localized rebound with a positive Rovsing sign, skin is warm pale and dry, neurologic exam no focal motor or sensory deficits Giovany Coma Scale of 15. Course Quality Measures none Orders Category Date Time Status CT Screening NOW Care 11/02/24 21:59 Active EKG (ED ONLY) *Do not use* NOW Care 11/03/24 00:51 Active Insert IV NOW Care 11/02/24 21:[address] abdomen pelvis w con Stat Exams 11/02/24 21:58 Completed EKG (ED Only) Stat Exams 11/03/24 00:51 Ordered Amylase Stat Lab 11/02/24 22:16 Completed CBC Stat Lab 11/02/24 22:16 Completed CMP [Comprehensive Metabolic Panel] Stat Lab 11/02/24 22:16 Completed Drug Screen,Urine Stat Lab 11/02/24 23:11 Completed Lactate (Lactic Acid) Stat Lab 11/02/24 22:16 Completed Procalcitonin Stat Lab 11/02/24 22:16 Completed Urinalysis, C/S if Indicated Stat Lab 11/02/24 23:11 Completed Morphine* Inj Med 11/02/24 21:58 Discontinued 4 mg IV X1 ONE Ondansetron Inj [Zofran Inj] Med 11/02/24 21:58 Discontinued 4 mg IV X1 ONE cefTRIAXone/D5w 1gm IV premix [Rocephin/D5w 1gm IV Med 11/03/24 00:51 Active premix] 1 gm in 50 ml IV X1 metroNIDAZOLE/NS 500 MG IVPB [Flagyl 500 mg IV] Med 11/03/24 00:52 Active 500 mg in 100 ml IV NOW Vital Signs Vital signs: Vital Signs Temperature 99.6 F 11/02/24 21:50 Pulse Rate 66 11/02/24 21:50 Respiratory Rate 18 11/02/24 21:50 Blood Pressure 160/95 H 11/02/24 21:50 Pulse Oximetry (%) 99 11/02/24 21:50 Oxygen Delivery Method Room Air 11/02/24 21:50 Abdominal Pain MDM MDM Narrative MDM Narrative:: Scribe Attestation: 11/03/24 - Isabel Anaya am scribing for and in the presence of Dr. Ramirez. I interpreted all labs. There is a slight leukocytosis. CT scan done of the abdomen and pelvis with IV contrast showed evidence for acute appendicitis. Patient received Rocephin 1 g IV and Flagyl 500 mg IV. I discussed this case with general surgeon on-call, Dr. Blum who has agreed to consult on this case but however because the patient has a history of a possible myocardial infarction with left ventricular hypertrophy on EKG dating back to May 2023 and with his hypertension, Dr. Blum asked for the hospitalist to admit. I did discuss this case with the hospitalist and the patient will be admitted to the hospital for further treatment and evaluation for his acute appendicitis. Patient data External records reviewed:: [facility] previous records (Per chart review, patient was seen here on 09/18/24 for stomach flu.) Clinical information provided by:: patient Social determinants that could affect healthcare access:: none Patient has the following chronic illnesses:: HTN, HLD How is presenting disease/condition affected by chronic disease/condition?: uneffected by Evaluation data The following diagnostics were reviewed and interpreted by me:: lab results and radiology exam(s) Lab and/or radiology exams considered but not ordered:: none Interpretation Summary: [facility] Report Signed Patient: DANDRE TEAGUE. Record#: [id number] Birthdate: 1990 Age/Sex: 34 / M Location: [facility] Attending Dr: Ordering Physician: Noe Singer PA-C Date of Service: 11/02/24 Procedure(s): CT abdomen pelvis w con Accession Number(s): [id number] cc: Emeka Robles MD; NO PRIMARY/FAMILY,PHYSICIAN; Noe Singer PA-C~ Examination: CT abdomen with intravenous contrast CT pelvis with intravenous contrast 2-D coronal reconstructions 2-D sagittal reconstructions Date and time of exam:November 02, 2024 11:20 PM Indications: Severe mid abdominal pain beginning 2 days ago Comparison: September 18, 2024. CTDI: vol (mGy) 9.24 DLP: (mGycm) 378 Technique: Multiple axial sections of the abdomen and pelvis have been obtained. 64 slice high-resolution scanner used. 3 mm axial sections have been obtained, post intravenous injection 60 cc [id number] 2-D sagittal, coronal reconstructions obtained. Low dose protocols were performed. One or more of the following dose reduction techniques were used; automated exposure control, adjustment of the mA and/or KV according to patient size, use of iterative reconstruction technique. Findings: No focal liver or splenic lesion No gallstones No pancreatic or adrenal mass No renal or ureteral calculi, no hydronephrosis Aorta normal size Minute fat-containing umbilical hernia No bowel obstruction Acute appendicitis, coronal image 46, inflamed enlarged appendix below and medial to the cecum No pelvic abscess Impression: Acute appendicitis No pelvic abscess Dictated By: Emeka Robles MD Signed By: <Electronically signed by Emeka Robles MD in OV> 11/02/24 7653 Medications / Prescriptions Medications or Prescriptions considered but not ordered:: none Medication administrations:: Medication Administration History Ceftriaxone Sodium/Dextrose (Rocephin/D5w 1gm Iv Premix) 1 gm in 50 mls @ 100 mls/hr IV X1 ONE Stop: 11/03/24 01:20 Metronidazole (Flagyl 500 Mg Iv) 500 mg in 100 mls @ 200 mls/hr IV NOW ONE Stop: 11/03/24 01:21 Discontinued Medications Morphine Sulfate (Morphine Sulf Inj 4 Mg/Ml Vial) 4 mg IV X1 ONE Stop: 11/02/24 21:59 Last Admin: 11/02/24 22:21 Dose: 4 mg Documented By: FAHEEM Ondansetron HCl (Ondansetron Inj 2 Mg/Ml Inj 2 Ml) 4 mg IV X1 ONE; Protocol Stop: 11/02/24 21:59 Last Admin: 11/02/24 22:20 Dose: 4 mg Documented By: SF see above Consultations Consultation(s) initiated? (list below): Yes Diagnosis Differential diagnosis abdominal pain: other (See MDM) Most likely diagnosis given after review of the tests above:: see clinical impression below Admission Indicated Admission indicated?: indicated Admission Request Was there a request for admission?: Yes Admission Attestation Admission request attestation: Discussed case with [] from Hospitalist service regarding admission. Discussed patients ED course, exam findings, labs, and radiology results. The Hospitalist [agrees,declines] to accept the patient for admission. Disposition Plan Disposition Plan: Admit Discharge Plan Plan Patient Disposition: Admit Acute Care w/in Hospital Prescriptions/Referrals Prescriptions/Med Rec: No Action buspirone 5 mg Tablet 5 mg PO BID atorvastatin 20 mg Tablet 20 mg PO QDAY aspirin 81 mg Tablet,Delayed Release (Dr/Ec) 81 mg PO QDAY metoprolol succinate 25 mg Tablet Extended Release 24 Hr 25 mg PO QDAY ibuprofen 600 mg tablet 600 mg PO Q6H PRN (Reason: pain) Qty: 10 0RF ivermectin 3 mg tablet 12 mg PO QWEEK Qty: 8 0RF Referrals: No Primary/Family,Physician [Primary Care Provider] - In 1 week Problem List Clinical Impression: Appendicitis, Hypertension Patient/Caregiver Discharge Instructions Print Language: Angolan Stand Alone Forms: Renetta Award Info., Patient Portal Info Letter
--- NOTE | 2024-11-03 00:51 | EKG_ITS ---
[facility] Test Date: 2024-11-03 Pat Name: DANDRE TEAGUE Department: Room: - Gender: Male Pen Maker: : 1990 Requested By: Marlon Adkins Order Number: [id number] Reading MD: Marlon Adkins Measurements Intervals [place] Rate: 73 P: 66 ID: [id number] QRS: 83 QRSD: 84 T: 120 QT: 343 QTc: 380 Interpretive Statements SINUS RHYTHM POSSIBLE LEFT ATRIAL ENLARGEMENT [-0.1mV P-WAVE IN V1/V2] POSSIBLE LEFT VENTRICULAR HYPERTROPHY [VOLTAGE CRITERIA PLUS LAE OR QRS WIDENING] MARKED ST ELEVATION, CONSIDER ANTERIOR INJURY [MARKED ST ELEVATION W/O NORMALLY INFLECTED T-WAVE IN V2-V5] ACUTE [place] Compared to ECG 10/27/2023 13:49:08 Sinus bradycardia no longer present ST (T wave) deviation still present Myocardial infarct finding still present /store/S0/[id number]/ecg/[id number].pdf
--- NOTE | 2024-11-03 01:33 | PD.RESHP ---
Documentation for date of: 11/03/24 [facility] History of Present Illness History of present illness: This is a 34-year-old male with PMHx significant for congenital structural heart defect, hypertension, and anxiety, presenting to the ED with acute abdominal pain Abdominal pain started 3 days ago, and has been ongoing. Located initially periumbilical, now in right lower quadrant. Rates it a 7-8 out of 10 intensity. Associated with nausea with no vomiting. Not related to eating, able to tolerate oral intake well. Bowels have been regular. He has a history of cardiomyopathy, likely congenital. He had a cardiac cath at [facility] in July 2023 for chronic recurrent chest pain and ST elevation noted on exam, showing paint coronary arteries. At the time, he was found to have hypertension and was told as symptoms of chest pain was related to anxiety. He has been prescribed medications for anxiety as well as antihypertensives which he takes PRN. Reports recurrent episodes of chest pain, however less frequent, for which he would take his prescribed medications and usually his chest pain would resolve. He also presented at our ED on 10/2023 with chest pain with findings of bradycardia, diffuse ST elevation and OH depression, normal troponin. However, he did have a visit from 05/2023 showing troponin of 0.166. Review of past EKGs from previous admissions showed evidence of left atrial and ventricular hypertrophy, as well as biphasic and deeply inverted T waves in V2 V3 suggestive of Wellen syndrome type B. Additionally, he states she was born with a hole in his heart and was told he no surgical intervention was needed. He was advised to follow-up with cardiology after his last cath, but has not seen a brewing technician. His mother had a heart attack at the age of 17. No other family members have ever been diagnosed with heart attack or sudden cardiac , including extended cousins. Currently denies fever, chills, headaches, fall or trauma, chest pain, palpitations, shortness of breath, constipation or diarrhea, upper or lower GI bleed, dysuria, hematuria, urinary urgency or frequency. Past Medical History: CAD, congenital cardiomyopathy, hypertension, anxiety disorder. Past Surgical History: None. Medications: Pending med rec. Allergies: No known allergies. Family History: Mother had a heart attack at the age of 17. Social History: Born in [place], currently , has 1 child, works in the [employer]. Denies alcohol, tobacco, or drug use. ED Course: Afebrile, BP 160/95, HR 66, satting well on room air. WBC 11.8, Hgb and PLT within normal limits. Coag panel WNL. CHEM panel significant for AST of 37, normal LFT and ALP. Normal renal function, procalcitonin, and electrolytes. UA negative for UTI. U tox was negative. CT abdomen showed acute appendicitis, no pelvic abscess. EKG showed sinus rhythm with biphasic and deeply inverted T waves in V2 V3 V4 and V5, and inverted T waves in other leads. In ED he was given a dose of CEFTRIAXONE and FLAGYL as well as pain control. Dr. Blum with general surgery was consulted who recommended admission under hospitalist services for possible surgical intervention tomorrow. Reason for admission: Acute appendicitis requiring admission for IV ANTIBIOTICS and possible surgery. Will need presurgical cardiac evaluation given aforementioned cardiac history. Exam Vital Signs Temp Pulse Resp BP Pulse Ox O2 Del Method 97.7 F 68 19 139/78 H 99 Room Air 11/03/24 00:20 11/03/24 00:20 11/03/24 00:20 11/03/24 00:20 11/03/24 00:20 11/03/24 00:20 Narrative Exam GENERAL Normal appearing male, in mild distress 2/2 pain HEENT NCAT.?SOHA. Oral mucosa is moist. Patent Nares NECK Supple, nontender, no JVD. CHEST RRR, grade 2 systolic murmur at the aortic point, no gallops or rubs. CTAB, no w/r/r, symmetrical expansion. ABDOMEN Soft, flat, tender to palpation in RLQ mostly. No guarding/rebound tenderness/masses. Bowel sounds presents EXTREMITIES No edema/cyanosis.? SKIN Warm and dry, no jaundice/rashes. NEUROMUSCULAR No lumbar or midline, no CVA, no paraspinal muscle spasm or tenderness. Moves all 4 extremities well, with full ROM and good CSM. VILLEGAS x4, CN II-XII grossly intact. No focal neurologic deficits. PSYCHIATRY Normal mood and affect, cooperative, no SI or HI or hallucinations. Results: Labs 11/02/24 22:16 11/02/24 22:16 Labs: Short CBC 11/02/24 Range/Units 22:16 WBC 11.8 H (3.8-10.6) Thou/mm3 Hgb 15.9 (13.5-16.0) g/dL Hct 46.8 (41.0-53.0) % Plt Count 264 (140-440) Thou/mm3 BMP 11/02/24 22:16 Sodium 141 Potassium 4.4 Chloride 103 Carbon Dioxide 29.6 BUN 7 L Creatinine 1.0 Glucose 89 Calcium 9.1 Liver Function 11/02/24 Range/Units 22:16 Total Bilirubin 0.7 (0.3-1.2) mg/dL AST 37 H (0-34) U/L ALT 32 (10-49) U/L Alkaline Phosphatase 68 (46-116) U/L Albumin 4.3 (3.5-5.0) gm/dL Urine 11/02/24 Range/Units 23:11 Urine Color Yellow (Lt Yel-Yel) Urine Clarity Turbid A (Clear/Hazy) Urine pH 7.5 H (5.0-7.0) Ur Specific [place] 1.027 (1.001-1.035) Urine Protein Trace (Neg - Trace) Urine Glucose (UA) Negative (Negative) Quality Measures Quality Measures none Medications Home Medications and Allergies Home Medications ?Medication ?Instructions ?Recorded ?Confirmed ?Type aspirin 81 mg tablet,delayed 81 mg PO QDAY 06/02/23 10/27/23 History release atorvastatin 20 mg tablet 20 mg PO QDAY 06/02/23 10/27/23 History buspirone 5 mg tablet 5 mg PO BID 06/02/23 10/27/23 History metoprolol succinate 25 mg 25 mg PO QDAY 06/02/23 10/27/23 History tablet,extended release 24 hr Allergies Allergy/AdvReac Type Severity Reaction Status Date / Time No Known Allergies Allergy Verified 09/18/24 21:36 Visit Medications Hydralazine HCl (Hydralazine Inj 20 Mg/Ml Vial) 10 mg IVP Q6H PRN PRN Reason: BP >160/100 if HR <80 Stop: 12/03/24 01:26 Hydromorphone HCl (Hydromorphone Inj 2 Mg/Ml Vial) 1 mg IVP Q4HR PRN PRN Reason: PAIN SCALE 7-10 Stop: 11/08/24 01:30 Ceftriaxone Sodium/Dextrose (Rocephin/D5w 1gm Iv Premix) 1 gm in 50 mls @ 100 mls/hr IV QDAY [facility] Stop: 11/10/24 08:59 Metronidazole (Flagyl 500 Mg Iv) 500 mg in 100 mls @ 200 mls/hr IV Q8HR [facility] Stop: 11/10/24 01:14 Sodium Chloride (Ns) 1,000 mls @ 80 mls/hr IV .[id number] [facility] Stop: 12/03/24 01:29 Acetaminophen (Ofirmev Inj) 1,000 mg in 100 mls @ 250 mls/hr IV Q6HR PRN PRN Reason: Fever >100.4 or Pain 1-4 Labetalol HCl (Labetalol Inj 5 Mg/Ml Vial 20 Ml) 10 mg IVP Q1H PRN PRN Reason: BP >160/100 iHR >80 Stop: 12/03/24 01:26 Morphine Sulfate (Morphine Sulf Inj 4 Mg/Ml Vial) 2 mg IVP Q4HR PRN PRN Reason: PAIN SCALE 1-6 Stop: 11/08/24 01:28 Ondansetron HCl (Ondansetron Inj 2 Mg/Ml Inj 2 Ml) 4 mg IVP Q6H PRN; Protocol PRN Reason: NAUSEA OR VOMITING Stop: 12/03/24 01:10 Pantoprazole Sodium (Pantoprazole Inj 40 Mg Vial) 40 mg IVP QDAY [facility] Stop: 12/03/24 08:59 Discontinued Medications Ceftriaxone Sodium/Dextrose (Rocephin/D5w 1gm Iv Premix) 1 gm in 50 mls @ 100 mls/hr IV X1 ONE Stop: 11/03/24 01:20 Metronidazole (Flagyl 500 Mg Iv) 500 mg in 100 mls @ 200 mls/hr IV NOW ONE Stop: 11/03/24 01:21 Morphine Sulfate (Morphine Sulf Inj 4 Mg/Ml Vial) 4 mg IV X1 ONE Stop: 11/02/24 21:59 Last Admin: 11/02/24 22:21 Dose: 4 mg Ondansetron HCl (Ondansetron Inj 2 Mg/Ml Inj 2 Ml) 4 mg IV X1 ONE; Protocol Stop: 11/02/24 21:59 Last Admin: 11/02/24 22:20 Dose: 4 mg Assessment & Plan Plan This is a 34-year-old male with PMHx significant for CAD, congenital structural heart defect, hypertension, and anxiety, presenting to the ED with acute abdominal pain. Admitted for acute appendicitis and preop cardiac evaluation. Appreciate recommendations from cardiology and general surgery teams. Acute appendicitis Presented with 3 days of abdominal pain, with CT and exam findings described above suggestive of acute appendicitis. Currently aseptic, has mild leukocytosis. General surgery on board, recommended admission under hospitalist service and evaluation tomorrow in the morning for possible surgical intervention. He has extensive cardiomyopathy as described below. And will need full cardiac evaluation prior to surgery. ? Continue CEFTRIAXONE and FLAGYL. ? Continue NS maintenance at 80 cc/KG ? ANTIPYRETIC and pain control PRN ? Pending blood culture Possible Hypertrophic cardiomyopathy Congenital cardiomyopathy HTN Anxiety His past cardiac history includes a cardiac catheterization in July 2023 at [facility] for chronic chest pain and ST elevation, revealing patent coronary arteries and hypertension. His chest pain, likely related to anxiety, is recurrent but less frequent, with symptoms often resolving with prescribed medications. Notably, his 10/2023 ED visit showed bradycardia, ST elevation in precordial leads, OH depression, and normal troponin, while a 05/2023 troponin level was mildly elevated at 0.166. EKGs from prior admissions have revealed left atrial and ventricular hypertrophy. He reports being born with a congenital heart defect, described as a ?hole in his heart,? though no surgical intervention was deemed necessary. He has not followed up with cardiology since his last cardiac catheterization. His family history is significant for a maternal heart attack at the age of 17, but there are no other relatives with a history of heart attack or sudden cardiac . Cardiac auscultation revealed regular rate and rhythm but noted a grade 2 late aortic systolic murmur. EKG demonstrated abnormal T-wave changes suggestive of his prior cardiac findings along with left atrial and ventricular hypertrophy. Admission BP 160/95, HR 79. Overall, above findings concerning for hypertrophic cardiomyopathy, and may need cardiology clearance prior to surgery. ? Pending cardiology evaluation, Dr. Serrato consulted ? Pending repeat EKG in a.m. ? Pending troponin and BNP ? Maintain K>4.0 and Mag>2.0 ? Cardiac stratification: CXR, echo, TSH, A1c, lipid panel ? LABETALOL PRN for SBP greater than 160 Health maintenance Diet: NPO GI prophylaxis: PROTONIX DVT prophylaxis: SCDs (low Garry score) Antibiotics: CEFTRIAXONE, FLAGYL CODE STATUS: Full code Disposition: Admitted for acute appendicitis, and preop cardiac workup Case was discussed with attending physician. Ki Thibodeaux, PGY II This document was transcribed using voice recognition technology. Minor inaccuracies may be present. Attending Provider Attestation/Addendum After examination of the patient and review of the clinical data I feel that this patient needs admission to the hospital for further treatment/evaluation. Plan of care discussed with patient and is in agreement. I Abigail Bay MD, attest that I was physically present for manzanares portions of evaluation, and examined patient, labs and imagings and plan of care were discussed with IM residents team, and I agree with the findings and plans documented above.
[2024-11-03] MEDS: SODIUM CHLORIDE 0.9% 1000 ML 1,000 ML 80 ML IV (02:05)
[2024-11-03] MEDS: metroNIDAZOLE/NS 500 MG IVPB 500 MG/100 ML BAG 200 MG IV ×3 (02:05→21:29)
[2024-11-03] MEDS: HYDROmorphone INJ 2 MG/ML VIAL 1 MG IVP ×2 (02:08→06:36)
[2024-11-03 03:06] LABS: B-Type Natriuretic Peptide < 20 pg/mL (0-100)
--- NOTE | 2024-11-03 03:10 | XR_ITS ---
Examination: AP chest single view Technique one AP portable upright chest single view Date and time: November 03, 2024 0302 hrs., Comparison 10/27/2023 Indications: History congenital heart defect, hypertension, right-sided abdominal pain today Findings: No significant cardiac enlargement Mild vascular congestion No lobar pneumonia or pulmonary edema Impression: Mild prominence pulmonary vasculature
[2024-11-03 03:21] LABS: Basophils # (Auto) 0.0 Thou/mm3 (0.0-0.2); Basophils % (Auto) 0 % (0-2.5); Eosinophils # (Auto) 0.0 Thou/mm3 (0.0-0.5); Eosinophils % (Auto) 0 % (0-10); Hematocrit 45.6 % (41.0-53.0); Hemoglobin 15.3 g/dL (13.5-16.0); Immature Granulocytes Auto 0.04 Thou/mm3 (0.00-0.00); Lymphocytes # (Auto) 0.6 Thou/mm3 (1.0-4.8); Lymphocytes % (Auto) 4 % (10-50); Mean Corpuscular HGB Conc 33.6 g/dl (31.0-37.0); Mean Corpuscular Hemoglobin 30.2 pg (25.0-35.0); Mean Corpuscular Volume 90 fL (80-100); Monocytes # (Auto) 0.6 Thou/mm3 (0.0-0.8); Monocytes % (Auto) 4 % (0-12); Neutrophils # (Auto) 13.8 Thou/mm3 (1.8-7.7); Neutrophils % (Auto) 92 % (37-80); Nucleated Red Blood Cell # 0.00 Thou/mm3 (0.00-0.00); Nucleated Red Blood Cell % 0 /100 WBC (0); Platelet Count 206 Thou/mm3 (140-440); RDW Standard Deviation 41.9 fL (35.1-43.9); Red Blood Count 5.07 Miln/mm3 (4.50-5.90); White Blood Count 15.1 Thou/mm3 (3.8-10.6)
[2024-11-03 03:34] LABS: INR 1.1 (0.9-1.3); Partial Thromboplastin Time 22.2 Seconds (22.0-36.0); Prothrombin Time 11.9 Seconds (9.0-12.2)
[2024-11-03 03:38] LABS: Glucose Estimated Average 88 mg/dL (80-131); Hemoglobin A1C 4.7 % Hgb (4.8-6.0)
[2024-11-03 03:42] LABS: Alanine Aminotransferase 30 U/L (10-49); Albumin, Serum 4.1 gm/dL (3.5-5.0); Albumin/Globulin Ratio 2.0 (1.2-2.2); Alkaline Phosphatase 62 U/L (46-116); Anion Gap 6 (7-16); Aspartate Amino Transferase 29 U/L (0-34); BUN/Creatinine Ratio 7 Ratio (12-20); Bilirubin,Total 1.0 mg/dL (0.3-1.2); Blood Urea Nitrogen 7 mg/dL (9-23); Calcium 8.8 mg/dL (8.3-10.6); Calcium (Corrected) 8.8 mg/dL (8.5-10.1); Carbon Dioxide 28.6 mMol/L (20.0-31.0); Cardiac Risk Estimate 5.0 RATIO (4.0-6.7); Chloride 104 mMol/L (98-107); Cholesterol 125 mg/dL (132-200); Creatinine (Component) 1.0 mg/dL (0.6-1.3); Estimated Creatinine Clearance 108.5 mL/min (>60); Free T4 (Free Thyroxine) 1.53 ng/dL (0.89-1.76); Globulin 2.1 gm/dL (2.3-3.5); Glucose 130 mg/dL (74-106); HDL Cholesterol 25 mg/dL (40-60); LDL Cholesterol,Calculated 93 mg/dL (0-130); Magnesium 1.7 mg/dL (1.6-2.6); Osmolality,Calculated 277 (275-295); Phosphorous 3.4 mg/dL (2.4-5.1); Potassium 4.3 mMol/L (3.4-5.1); Sodium 139 mMol/L (136-145); Thyroid Stimulating Hormone 0.62 uIU/mL (0.55-4.78); Total Protein 6.2 gm/dL (5.7-8.2); Triglycerides 35 mg/dL (30-150); Troponin I < 0.020 ng/mL (0.0-0.045); eGFR > 60 See Note
--- NOTE | 2024-11-03 05:01 | PC.NURSE ---
attempted to do med red, patient can only confirm aspirin but cannot recall other medications he takes and states he will ask family to bring in medication today.
--- NOTE | 2024-11-03 06:17 | PC.NURSE ---
spoke with dr reed regarding clarification of pain scale in order for pharmacy to fix overlapping pain scales for tylenol and morphine. states she will fix it.
[2024-11-03] MEDS: cefTRIAXone/D5w 1gm IV premix 1 GM/50 ML BAG IV (08:00)
--- NOTE | 2024-11-03 08:32 | ESCONSULT_ITS ---
HPI Data of Consult Requesting Physician: Treva Randall MD Admitting Provider: Abigail Bay MD Attending Provider: Treva Randall MD Primary Care Provider: Physician No Primary/Family Consult Narrative Reason for consult: Cardiac clearance History of present illness: HPI: A 34-year-old male patient [place] speaker, known case of hypertension, anxiety, reportedly history of heart attack in April 2023 status post angiogram, chronic EKG changes, presented to the ED due to acute abdominal pain for 2 days before admission. His pain started in the right iliac fossa associated with nausea and vomiting and also associated with low-grade patient was diagnosed with acute appendicitis and was admitted for surgical resection. Upon questioning the patient regarding her cardiac history he mentioned that in April 2023 he had an episode of heart attack in which he had to be transferred from our facility to [facility], he mentioned that he underwent angiogram however he does not know if he had a stent placed at that time. He mentions that during that time his mom from cancer at the age of 67, and distress affected his heart as per his statement. Since that day patient would have some episodes of sharp chest pain that last for few seconds located on the right and left chest, it is not related to breathing, and does not relate to exertion. Patient denied any palpitation, dizziness, orthopnea or paroxysmal nocturnal dyspnea and denied any lower limb extremities. Of note his reported that when he sleeps his breath stops for few seconds and then resume breathing. Patient has never had a sleep study in the past Home medications: Pending medication reconciliation however he reported that he is taking aspirin PMH: PSX: PFX: Mother at the age of 67 from cancer, however she had history of heart disease. Other family members negative for sudden or heart arrhythmias Social hx: Denied smoking, denied drinking or drug abuse Allergies: No known allergies cc:: cc: Treva Randall MD Review of Systems Review of Systems Systems Reviewed: All systems reviewed, normal except as documented Exam Vital Signs Temp Pulse Resp BP Pulse Ox O2 Del Method 97.9 F 79 22 H 132/69 H 96 Room Air 11/03/24 08:00 11/03/24 08:00 11/03/24 08:00 11/03/24 08:00 11/03/24 08:00 11/03/24 08:00 Narrative Exam GEN: AOx3, able to speak full sentences HEENT: NC/AC, PERRLA, oral mucosa moist, neck supple CVS: RRR, S1-S2 present, no murmurs appreciated RESP: CTAB GI: soft,non distended, right iliac fossa tenderness, NBS MSK: able to move all 4 limbs, no lower extremity edema SKIN: warm and dry HOUSEKEEPER/LAUNDRY ASSISTANT: CN II-XII and Sensation grossly intact. Results Labs 11/03/24 03:12 11/03/24 03:12 Labs: Short CBC 11/02/24 11/03/24 Range/Units 22:16 03:12 WBC 11.8 H 15.1 H (3.8-10.6) Thou/mm3 Hgb 15.9 15.3 (13.5-16.0) g/dL Hct 46.8 45.6 (41.0-53.0) % Plt Count 264 206 D (140-440) Thou/mm3 BMP 11/02/24 11/03/24 22:16 03:12 Sodium 141 139 Potassium 4.4 4.3 Chloride 103 104 Carbon Dioxide 29.6 28.6 BUN 7 L 7 L Creatinine 1.0 1.0 Glucose 89 130 H Calcium 9.1 8.8 Cardiac Enzymes 11/03/24 Range/Units 03:12 Troponin I < 0.020 (0.0-0.045) ng/mL Liver Function 11/02/24 11/03/24 Range/Units 22:16 03:12 Total Bilirubin 0.7 1.0 (0.3-1.2) mg/dL AST 37 H 29 (0-34) U/L ALT 32 30 (10-49) U/L Alkaline Phosphatase 68 62 (46-116) U/L Albumin 4.3 4.1 (3.5-5.0) gm/dL Urine 11/02/24 Range/Units 23:11 Urine Color Yellow (Lt Yel-Yel) Urine Clarity Turbid A (Clear/Hazy) Urine pH 7.5 H (5.0-7.0) Ur Specific [place] 1.027 (1.001-1.035) Urine Protein Trace (Neg - Trace) Urine Glucose (UA) Negative (Negative) Quality Measures Quality Measures none Medications Home Medications and Allergies Home Medications ?Medication ?Instructions ?Recorded ?Confirmed ?Type aspirin 81 mg tablet,delayed 81 mg PO QDAY 06/02/23 History release atorvastatin 20 mg tablet 20 mg PO QDAY 06/02/2311/03 History buspirone 5 mg tablet 5 mg PO BID 06/02/23 5 History metoprolol succinate 25 mg 25 mg PO QDAY 06/02/2311/10 History tablet,extended release 24 hr Allergies Allergy/AdvReac Type Severity Reaction Status Date / Time No Known Allergies Allergy Verified 09/18/24 21:36 Visit Medications Hydromorphone HCl (Hydromorphone Inj 2 Mg/Ml Vial) 1 mg IVP Q4HR PRN PRN Reason: PAIN SCALE 7-10 Stop: 11/08/24 01:30 Last Admin: 11/03/24 06:36 Dose: 1 mg Ceftriaxone Sodium/Dextrose (Rocephin/D5w 1gm Iv Premix) 1 gm in 50 mls @ 100 mls/hr IV QDAY [facility] Stop: 11/10/24 08:59 Last Admin: 11/03/24 08:00 Dose: 100 mls/hr Metronidazole (Flagyl 500 Mg Iv) 500 mg in 100 mls @ 200 mls/hr IV Q8HR [facility] Stop: 11/10/24 01:14 Last Infusion: 11/03/24 02:49 Dose: Infused Sodium Chloride (Ns) 1,000 mls @ 80 mls/hr IV .[id number] [facility] Stop: 12/03/24 01:29 Last Admin: 11/03/24 02:05 Dose: 80 mls/hr Acetaminophen (Ofirmev Inj) 1,000 mg in 100 mls @ 250 mls/hr IV Q6HR PRN PRN Reason: Fever >100.4 or Pain 1-3 Magnesium Sulfate (Magnesium Sulfate Ivpb) 2 gm in 50 mls @ 25 mls/hr IV X1 ONE Stop: 11/03/24 10:14 Labetalol HCl (Labetalol Inj 5 Mg/Ml Vial 20 Ml) 10 mg IVP Q1H PRN PRN Reason: BP >160/100 iHR >80 Stop: 12/03/24 01:26 Morphine Sulfate (Morphine Sulf Inj 4 Mg/Ml Vial) 2 mg IVP Q4HR PRN PRN Reason: PAIN SCALE 4-6 Stop: 11/08/24 01:28 Ondansetron HCl (Ondansetron Inj 2 Mg/Ml Inj 2 Ml) 4 mg IVP Q6H PRN; Protocol PRN Reason: NAUSEA OR VOMITING Stop: 12/03/24 01:10 Pantoprazole Sodium (Pantoprazole Inj 40 Mg Vial) 40 mg IVP QDAY [facility] Stop: 12/03/24 08:59 Last Admin: 11/03/24 08:01 Dose: 40 mg Discontinued Medications Hydralazine HCl (Hydralazine Inj 20 Mg/Ml Vial) 10 mg IVP Q6H PRN PRN Reason: BP >160/100 if HR <80 Stop: 12/03/24 01:26 Ceftriaxone Sodium/Dextrose (Rocephin/D5w 1gm Iv Premix) 1 gm in 50 mls @ 100 mls/hr IV X1 ONE Stop: 11/03/24 01:20 Metronidazole (Flagyl 500 Mg Iv) 500 mg in 100 mls @ 200 mls/hr IV NOW ONE Stop: 11/03/24 01:21 Morphine Sulfate (Morphine Sulf Inj 4 Mg/Ml Vial) 4 mg IV X1 ONE Stop: 11/02/24 21:59 Last Admin: 11/02/24 22:21 Dose: 4 mg Morphine Sulfate (Morphine Sulf Inj 4 Mg/Ml Vial) 2 mg IVP Q4HR PRN PRN Reason: PAIN SCALE 1-6 Stop: 11/08/24 01:28 Ondansetron HCl (Ondansetron Inj 2 Mg/Ml Inj 2 Ml) 4 mg IV X1 ONE; Protocol Stop: 11/02/24 21:59 Last Admin: 11/02/24 22:20 Dose: 4 mg Assessment & Plan Plan A 34-year-old male patient [place] speaker, known case of hypertension, anxiety, reportedly history of heart attack in April 2023 status post angiogram, chronic EKG changes, presented to the ED due to acute abdominal pain for 2 days before admission. His pain started in the right iliac fossa associated with nausea and vomiting and also associated with low-grade patient was diagnosed with acute appendicitis and was admitted for appendectomy. Cardiology team were consulted for cardiac clearance by the primary team. Assessment and plan #?History of structural heart disease #History of abnormal EKG # Questionable history of heart attack at the age of 33 status post angiogram. Patient presented with acute abdominal pain. He does not have any cardiac symptoms except episodes of chest pain that occurs daily and last for few seconds and disappear by itself. It appears that is not related to the exertion and the location was on the right and the left. It has no relation with the breathing. Patient had underwent angiogram in 2023, [facility]. Patient does not recall if he had stent placed. He was discharged on aspirin and he was informed that his heart attack was related to stress after his mother at the age of 67 for cancer. EKG showed ST segment elevation throughout V1-V5. Limb lead showed CT depression on the limb leads, patient also has high voltage EKG throughout all leads. Chest x-ray was only significant Mild prominence pulmonary vasculature. Echocardiogram from [facility] was reviewed. LV was normal function and structure. Ejection fraction was 60%, trace pericardial effusion was noted however there was no tamponade. Reviewed angiogram / LHC during that admission did not show significant CAD. No other stenosis noted and no stents were placed. Echocardiogram was done at bedside today also showed the same findings with a EF of 60% normal LV structure and function. Normal right side, trace pericardial effusion still present however it is negligible. Plan - Patient is cleared for surgery - Patient will need further cardiac workup upon discharge. Thank you for your consultation, please do not hesitate to reach out if you have any question or concern - Patient's plan and care discussed with my attending, Dr. Ama Babb MD Internal Medicine PGY-3 Attending Provider Attestation/Addendum I have personally seen and examined the patient separately on the above date of service and discussed the plan of care with the resident. I reviewed the resident Dr. Babb consultation progress note and agree with the resident findings and plan in the note above and have also edited the documentation to reflect my findings and plan. Cam Serrato M.D. Interventional Cardiology
--- NOTE | 2024-11-03 08:55 | PD.SURCONS ---
HPI Consult details Consult date: 11/03/24 Reason for consultation narrative: Right lower abdominal pain with nausea and vomiting History of present illness: 34-year-old male with history of anxiety, hypertension and questionable history of ND in the past presented with acute onset of abdominal pain with nausea and vomiting. His pain started yesterday and lower abdomen, now localized over right lower quadrant. He has had an episode of nausea and vomiting, but denies fever, chills, diarrhea, constipation or dysuria. She denies having similar symptoms in the past. Review of Systems Constitutional Constitutional: Denies chills and Denies fever(s) Cardiovascular Cardiovascular: Denies chest pain Respiratory Respiratory: Denies cough Gastrointestinal Gastrointestinal: Reports abdominal pain, Reports nausea and Reports vomiting Genitourinary Genitourinary: Denies difficulty urinating Hematologic/Lymphatic Hematologic/Lymphatic: Denies easy bleeding and Denies easy bruising Past Medical History Surgical History OTHER SURGICAL HX: No surgeries in the past Social History SMOKING STATUS: Never smoker SUBSTANCE USE: does not use ALCOHOL: Never Meds Home Medications and Allergies Home Medications ?Medication ?Instructions ?Recorded ?Confirmed ?Type aspirin 81 mg tablet,delayed 81 mg PO QDAY 06/02/23 11/03/24 History release atorvastatin 20 mg tablet 20 mg PO QDAY 06/02/23 11/03/24 History buspirone 5 mg tablet 5 mg PO BID 06/02/23 11/03/24 History metoprolol succinate 25 mg 25 mg PO QDAY 06/02/23 10/27/23 History tablet,extended release 24 hr Allergies Allergy/AdvReac Type Severity Reaction Status Date / Time No Known Allergies Allergy Verified 09/18/24 21:36 Exam Vital Signs Temp Pulse Resp BP Pulse Ox O2 Del Method 97.9 F 79 22 H 132/69 H 96 Room Air 11/03/24 08:00 11/03/24 08:00 11/03/24 08:00 11/03/24 08:00 11/03/24 08:00 11/03/24 08:00 Constitutional Constitutional: no acute distress Routine Abdominal Exam Abdominal: Present soft, normoactive bowel sounds and tenderness (Right lower quadrant tenderness to palpation with guarding, positive Rovsing sign); Absent distended Results Results: Laboratory Laboratory results: results reviewed Results: Imaging CT scan - abdomen: report reviewed and image reviewed CT scan - pelvis: report reviewed and image reviewed Assessment & Plan Problem List (1) Appendicitis: Status: Acute Plan Keep NPO with IVF and IV antibiotics. He had cardiac echo that was evaluated by baller tender who cleared the patient for the operation. Will plan for laparoscopic possible open appendectomy. Risks, benefits and alternatives to procedure discussed with the patient via member of the legislative council. All his questions answered, he agreed and consented to proceed with the operation. (1) Appendicitis Qualifiers: Acute appendicitis type: unspecified acute appendicitis type Appendicitis type: acute appendicitis Qualified Code(s): K35.80 - Unspecified acute appendicitis
--- NOTE | 2024-11-03 09:00 | EKG_ITS ---
[facility] (Formerly [facility]) Test Date: 2024-11-03 Pat Name: DANDRE TEAGUE Department: Room: - Gender: Male Noc Engineer: : 1990 Requested By: Ki Thibodeaux Order Number: [id number] Reading MD: Ki Thibodeaux Measurements Intervals Maple Rate: 87 P: 66 HI: 171 QRS: 83 QRSD: 85 T: 81 QT: 335 QTc: 404 Interpretive Statements SINUS RHYTHM POSSIBLE LEFT ATRIAL ENLARGEMENT [-0.1mV P-WAVE IN V1/V2] POSSIBLE LEFT VENTRICULAR HYPERTROPHY [VOLTAGE CRITERIA PLUS LAE OR QRS WIDENING] MARKED ST ELEVATION, CONSIDER ANTERIOR INJURY [MARKED ST ELEVATION W/O NORMALLY INFLECTED T-WAVE IN V2-V5] ACUTE ME Compared to ECG 11/03/2024 02:13:28 No significant changes /store/S0/[id number]/[id number].pdf
[2024-11-03] MEDS: Magnesium Sulfate 2 GM Ivpb 2 GM/50 ML BAG IV (09:36)
[2024-11-03 09:42] LABS: Troponin I < 0.020 ng/mL (0.0-0.045)
--- NOTE | 2024-11-03 10:19 | PC.SS ---
Patient Rome Mcmanus is a 34 Year old male admitted for Acute Appendicitis. SS met with patient at bedside to discuss discharge plan and verify demographic information. Patient appeared to be alert and oriented to person, time and place. Patient reports he lives at home with his and children. Patient reports his , Jasmin Mcmanus is his surrogate decision maker, [phone]. Patient is able to complete all ADL's independently and does not utilize any source of DME to assist with ambulation Patients choice of pharmacy is [facility]. PCP is Gregorio Dave. At time of discharge patient will return home. will provide transportation. Discharge plan: Home Next of kin: , Jasmin Mcmanus PCP: Gregorio Dave
--- NOTE | 2024-11-03 11:57 | ESOP_ITS ---
Date of Procedure 11/03/24 Pre Op Diagnosis Acute appendicitis Post Op Diagnosis Acute appendicitis Procedure Laparoscopic appendectomy Findings Inflamed, hyperemic and dilated appendix without perforation Procedure Description Patient was brought into the operating room in supine position. After administration of general endotracheal anesthesia, abdomen was prepped and draped in standard surgical manner. A Veress needle was inserted through the umbilicus and pneumoperitoneum was obtained up to 15 mmHg. The Veress needle was removed and a 5 mm umbilical incision was made. A 5 mm trocar was placed and laparoscopic camera was inserted. Under direct visualization a laparoscopic camera a 5 mm trocar placed in suprapubic region and a 10 mm trocar placed in left lower quadrant. The abdomen was inspected, the cecum was identified and followed until the appendix was identified. The appendix was noted to be inflamed, dilated and hyperemic without perforation. A window was created between the appendix and mesoappendix and the appendix was divided near the appendix and cecal junction with blue Endo GEE stapling device. The mes oappendix was divided with graham Endo GEE stapling device. The appendix was placed inside an Endo Catch and removed from the abdomen utilizing left lower quadrant trocar site. Abdomen and pelvis copiously and thoroughly washed and irrigated, all the fluids were suctioned and the suctioned fluid returned clear. Hemostasis was adequate and satisfactory, staple lines were intact without bleeding or any leakage. Left lower quadrant trocar sites fascial defect was closed with 0 Vicryl using Endo closure device. Instruments and trocars removed, pneumoperitoneum was evacuated and the incisions closed with 4-0 Monocryl subcuticular fashion. Instruments, needles and sponge counts were reported to be correct ??2. Patient tolerated the procedure well, was extubated, breathing spontaneously and without difficulty and was transferred to postanesthesia care in stable condition. Anesthesia GETA and local Pathology / specimen Other (Appendix) Estimated Blood Loss 10 Condition Stable Disposition PACU Surgeon Rudy Blum MD Surgical Staff Operation Date: 11/03/24 10:45 <No data on this case meets the specified criteria>
--- NOTE | 2024-11-03 12:05 | SUR.PHASEI ---
pt arrived to PACU via gurney with oral airway present, breathing unlabored, dressing to abdomen clean, dry, and intact, report from Raul ROBERTO and Dr Wyatt
--- NOTE | 2024-11-03 12:25 | SUR.PHASEI ---
report to Reba Ayala RN
--- NOTE | 2024-11-03 12:33 | PC.SS ---
SS follow up note; Patient is pending Surgery today. Patient will discharge home when medically cleared.
--- NOTE | 2024-11-03 12:57 | SUR.PHASEI ---
1253 Report given to Cathryn ROBERTO, patient meets discharge criteria from recovery, awake and alert, breathing unlabored, vital signs stable, denies pain and nausea, dressing intact; no bleeding noted 1257 Patient transported via gurney to room 351 without incident, patient able to ambulate from gurney to bed with standby assist, mother and of patient at bedside, patient resting comfortably with call light in reach when this commercial underwriter left patients room
--- NOTE | 2024-11-03 13:41 | ESPR_ITS ---
<Statement entered by Treva Randall MD - 11/08/24 09:12> I reviewed above note and agree with findings and plans. I have also personally examined the patient with medicine team and went over assessment and plan with medical team including direct marketing intern and resident physician. Documentation for date of: 11/03/24 Subjective Subjective Interval history: Patient examined at bedside. Complains of generalized abdominal pain which has improved since started IV dilaudid. He has had 2 episodes of vomiting. Cardiology has cleared patient for Laparoscopic appendectomy by Dr. Blum this morning. All questions and concerns answered to patient's satisfaction. Vitals are stable, Leukocytosis 15 likely reacitive. A1c 4.7. He has unknown underlying cardiac disease. Patient is unable to provide thorough history. In house cardiology was able to review echo from [facility]. Findings at that time showedLV was normal function and structure. Ejection fraction was 60%, trace pericardial effusion was noted however there was no tamponade. Angiogram during that admission did not show significant vascular stenosis and no stents were placed. Echocardiogram was done at bedside today also showed the same findings with a EF of 60% normal LV structure and function. Normal right side, trace pericardial effusion still present however it is negligible. Continue IV antibiotics ceftriaxone and metronidazole. Blood cultures are pending. Anticipate discharge next 24 hours. Exam Vital Signs Temp Pulse Resp BP Pulse Ox O2 Del Method O2 Flow Rate 98.0 F 90 16 143/85 H 100 Room Air 4 11/03/24 12:35 11/03/24 12:50 11/03/24 12:50 11/03/24 12:50 11/03/24 12:50 11/03/24 08:00 11/03/24 12:50 Narrative Exam General: Yound male, distress from pain, cooperative HEENT: NCAT, No JVD noted. Mucosa moist. Pupils are equal and reactive to light bilaterally Cardiovascular: Normal S1 and S2. Regular rate and rhythm. Respiratory: Lungs are clear to auscultation bilaterally. No wheezing or crackles heard. Abdomen: guarding, patient refused physical exam due to pain Skin: Warm to touch, dry, no rashes noted Musculoskeletal: No gross injuries. Able to move all 4 extremities. No pitting edema Neuro: Alert and oriented x3. No focal neuro deficits. Psych: Normal affect and mood Objective Labs 11/03/24 03:12 11/03/24 03:12 Labs: Laboratory Results - last 24 hr 11/02/24 11/02/24 11/03/24 22:16 23:11 03:12 WBC 11.8 H 15.1 H RBC 5.28 5.07 Hgb 15.9 15.3 Hct 46.8 45.6 MCV 89 90 MCH 30.1 30.2 MCHC 34.0 33.6 RDW Std Deviation 41.5 41.9 Plt Count 264 206 D Neut % (Auto) 72 92 H Lymph % (Auto) 18 4 L [place] % (Auto) 8 4 Eos % (Auto) 3 0 Baso % (Auto) 0 0 Neut # (Auto) 8.5 H 13.8 H Lymph # (Auto) 2.1 0.6 L [place] # (Auto) 0.9 H 0.6 Eos # (Auto) 0.3 0.0 Baso # (Auto) 0.0 0.0 Immature Gran # (Auto) 0.04 H 0.04 H Absolute Nucleated RBC 0.00 0.00 Immature Gran % 0 0 Nucleated RBC % 0 0 PT 11.9 INR 1.1 APTT 22.2 Sodium 141 139 Potassium 4.4 4.3 Chloride 103 104 Carbon Dioxide 29.6 28.6 Anion Gap 8 6 L BUN 7 L 7 L Creatinine 1.0 1.0 Estim Creat Clear Calc 105.1 108.5 eGFR > 60 > 60 BUN/Creatinine Ratio 7 L 7 L Glucose [address] Glu mg/dL 88 Hemoglobin A1c 4.7 L Calculated Osmolality 278 277 Lactic Acid 0.7 Calcium 9.1 8.8 Corrected Calcium 9.1 8.8 Phosphorus 3.4 Magnesium 1.7 Total Bilirubin 0.7 1.0 AST 37 H 29 ALT 32 30 Alkaline Phosphatase 68 62 Troponin I < 0.020 B-Natriuretic Peptide < 20 Total Protein 6.5 6.2 Albumin 4.3 4.1 Globulin 2.2 L 2.1 L Albumin/Globulin Ratio 2.0 2.0 Triglycerides 35 Cholesterol 125 L LDL Cholesterol, Calc 93 HDL Cholesterol 25 L Cholesterol/HDL Ratio 5.0 Amylase 70 Procalcitonin 0.06 TSH 0.62 Free T4 1.53 Ur Collection Type Clean Catch Urine Color Yellow Urine Clarity Turbid A Urine pH 7.5 H Ur Specific Cody 1.027 Urine Protein Trace Urine Glucose (UA) Negative Urine Ketones Negative Urine Blood Negative Urine Nitrite Negative Urine Bilirubin Negative Urine Urobilinogen (Auto) 2.0 Ur Leukocyte Esterase Negative Urine RBC 1 Urine WBC 0 Ur Squamous Epith Cells < 1 Amorphous Crystals Present A Urine Bacteria None Ur Culture Indicated? Not Indicated Urine Opiates Screen Negative Urine Fentanyl Screen Negative Ur Barbiturates Screen Negative U Amphetamin/Meth Scrn Negative U Benzodiazepines Scrn Negative U Cocaine Metab Screen Negative U Marijuana (THC) Screen Negative 11/03/24 09:13 WBC RBC Hgb Hct MCV MCH MCHC RDW Std Deviation Plt Count Neut % (Auto) Lymph % (Auto) [place] % (Auto) Eos % (Auto) Baso % (Auto) Neut # (Auto) Lymph # (Auto) [place] # (Auto) Eos # (Auto) Baso # (Auto) Immature Gran # (Auto) Absolute Nucleated RBC Immature Gran % Nucleated RBC % PT INR APTT Sodium Potassium Chloride Carbon Dioxide Anion Gap BUN Creatinine Estim Creat Clear Calc eGFR BUN/Creatinine Ratio Glucose Estimated Ave Glu mg/dL Hemoglobin A1c Calculated Osmolality Lactic Acid Calcium Corrected Calcium Phosphorus Magnesium Total Bilirubin AST ALT Alkaline Phosphatase Troponin I < 0.020 B-Natriuretic Peptide Total Protein Albumin Globulin Albumin/Globulin Ratio Triglycerides Cholesterol LDL Cholesterol, Calc HDL Cholesterol Cholesterol/HDL Ratio Amylase Procalcitonin TSH Free T4 Ur Collection Type Urine Color Urine Clarity Urine pH Ur Specific Cody Urine Protein Urine Glucose (UA) Urine Ketones Urine Blood Urine Nitrite Urine Bilirubin Urine Urobilinogen (Auto) Ur Leukocyte Esterase Urine RBC Urine WBC Ur Squamous Epith Cells Amorphous Crystals Urine Bacteria Ur Culture Indicated? Urine Opiates Screen Urine Fentanyl Screen Ur Barbiturates Screen U Amphetamin/Meth Scrn U Benzodiazepines Scrn U Cocaine Metab Screen U Marijuana (THC) Screen Quality Measures Quality Measures none Assessment & Plan Assessment Current Active Medications: Generic Name Dose Route Start Last Admin Trade Name Freq PRN Reason Stop Dose Admin Hydrocodone Bitart/Acetaminophen 1 tab 11/03/24 13:06 Hydrocodone/Apap 5/325 Tablet PO 11/08/24 13:05 Q6HR PRN PAIN Protocol Docusate Sodium 100 mg 11/03/24 13:06 Docusate Sod 100 Mg Capsule PO 12/03/24 13:05 BID LINDA Protocol Ceftriaxone Sodium/Dextrose 1 gm in 50 mls @ 100 mls/hr 11/03/24 09:00 11/03/24 08:00 Rocephin/D5w 1gm Iv Premix IV 11/10/24 08:59 100 mls/hr QDAY LINDA Administration Metronidazole 500 mg in 100 mls @ 200 mls/hr 11/03/24 01:15 11/03/24 02:49 Flagyl 500 Mg Iv IV 11/10/24 01:14 Infused Q8HR LINDA Infusion Acetaminophen 1,000 mg in 100 mls @ 250 mls/hr 11/03/24 01:29 Ofirmev Inj IV Q6HR PRN Fever >100.4 or Pain 1-3 Labetalol HCl 10 mg 11/03/24 01:27 Labetalol Inj 5 Mg/Ml Vial 20 Ml IVP 12/03/24 01:26 Q1H PRN BP >160/100 iHR >80 Morphine Sulfate 2 mg 11/03/24 13:09 Morphine Sulf Inj 4 Mg/Ml Vial IVP 11/08/24 01:28 Q4HR PRN PAIN Protocol Ondansetron HCl 4 mg 11/03/24 01:11 Ondansetron Inj 2 Mg/Ml Inj 2 Ml IVP 12/03/24 01:10 Q6H PRN NAUSEA OR VOMITING Protocol Pantoprazole Sodium 40 mg 11/03/24 09:00 11/03/24 08:01 Pantoprazole Inj 40 Mg Vial IVP 12/03/24 08:59 40 mg QDAY LINDA Administration Plan This is a 34-year-old male with PMHx significant for CAD, congenital structural heart defect, hypertension, and anxiety, presenting to the ED with acute abdominal pain. Admitted for acute appendicitis and preop cardiac evaluation. #Acute appendicitis Presented with 3 days of abdominal pain, with CT and exam findings described above suggestive of acute appendicitis. Currently aseptic, has mild leukocytosis. -consulted surgery Dr. Blum--planning for laproscopic appendectomy -blood cultures are pending ? Continue IV CEFTRIAXONE 1 g daily (11/03-) and FLAGYL 500mg TID (11/03-) ? Continue NS maintenance at 80 cc/KG ? ANTIPYRETIC and pain control PRN -NPO for surgery #History of cardiac disease #HTN #Anxiety His past cardiac history includes a cardiac catheterization in July 2023 at [facility] for chronic chest pain and ST elevation, revealing patent coronary arteries and hypertension. His chest pain, likely related to anxiety, is recurrent but less frequent, with symptoms often resolving with prescribed medications. Notably, his 10/2023 ED visit showed bradycardia, ST elevation in precordial leads, [place] depression, and normal troponin, while a 05/2023 troponin level was mildly elevated at 0.166. EKGs from prior admissions have revealed left atrial and ventricular hypertrophy. He reports being born with a congenital heart defect, described as a ?hole in his heart,? though no surgical intervention was deemed necessary. He has not followed up with cardiology since his last cardiac catheterization. His family history is significant for a maternal heart attack at the age of 17, but there are no other relatives with a history of heart attack or sudden cardiac . Cardiac auscultation revealed regular rate and rhythm but noted a grade 2 late aortic systolic murmur. EKG demonstrated abnormal T-wave changes suggestive of his prior cardiac findings along with left atrial and ventricular hypertrophy. Admission BP 160/95, HR 79. Overall, above findings concerning for hypertrophic cardiomyopathy, and may need cardiology clearance prior to surgery. Cardiology Dr. Serrato was able to review echo from [facility]. Findings at that time showedLV was normal function and structure. Ejection fraction was 60%, trace pericardial effusion was noted however there was no tamponade. Angiogram during that admission did not show significant vascular stenosis and no stents were placed. Echocardiogram was done at bedside today 11/03--also showed the same findings with a EF of 60% normal LV structure and function. Normal right side, trace pericardial effusion still present however it is negligible. -patient was cleared from cardiology standpoint. He will need close follow up at time of dc ? Maintain K>4.0 and Mag>2.0 ? LABETALOL PRN for SBP greater than 160 Health maintenance Diet: NPO GI prophylaxis: PROTONIX DVT prophylaxis: SCDs Antibiotics: CEFTRIAXONE, FLAGYL CODE STATUS: Full code Disposition: Admitted for acute appendicitis The patient's management plan was discussed with my attending physician Dr. Randall. Kacy Srivastava, PGY-2
[2024-11-03] MEDS: DOCUSATE SOD 100 MG CAPSULE PO ×2 (14:59→21:32)
[2024-11-03] MEDS: HYDROcodone/APAP 5/325 TABLET 1 TAB PO (21:28)
[2024-11-04 04:00] VITALS: BP 119/75; PULSE 89; RESP 18; TEMP 36.6; O2SAT 97
[2024-11-04] MEDS: metroNIDAZOLE/NS 500 MG IVPB 500 MG/100 ML BAG 200 MG IV (05:25)
[2024-11-04 06:02] LABS: Basophils # (Auto) 0.0 Thou/mm3 (0.0-0.2); Basophils % (Auto) 0 % (0-2.5); Eosinophils # (Auto) 0.0 Thou/mm3 (0.0-0.5); Eosinophils % (Auto) 0 % (0-10); Hematocrit 46.5 % (41.0-53.0); Hemoglobin 15.2 g/dL (13.5-16.0); Immature Granulocytes Auto 0.04 Thou/mm3 (0.00-0.00); Lymphocytes # (Auto) 0.7 Thou/mm3 (1.0-4.8); Lymphocytes % (Auto) 6 % (10-50); Mean Corpuscular HGB Conc 32.7 g/dl (31.0-37.0); Mean Corpuscular Hemoglobin 29.7 pg (25.0-35.0); Mean Corpuscular Volume 91 fL (80-100); Monocytes # (Auto) 0.5 Thou/mm3 (0.0-0.8); Monocytes % (Auto) 4 % (0-12); Neutrophils # (Auto) 10.0 Thou/mm3 (1.8-7.7); Neutrophils % (Auto) 89 % (37-80); Nucleated Red Blood Cell # 0.00 Thou/mm3 (0.00-0.00); Nucleated Red Blood Cell % 0 /100 WBC (0); Platelet Count 228 Thou/mm3 (140-440); RDW Standard Deviation 42.1 fL (35.1-43.9); Red Blood Count 5.11 Miln/mm3 (4.50-5.90); White Blood Count 11.3 Thou/mm3 (3.8-10.6)
[2024-11-04 06:26] LABS: Alanine Aminotransferase 20 U/L (10-49); Albumin, Serum 3.8 gm/dL (3.5-5.0); Albumin/Globulin Ratio 1.9 (1.2-2.2); Alkaline Phosphatase 57 U/L (46-116); Anion Gap 7 (7-16); Aspartate Amino Transferase 23 U/L (0-34); BUN/Creatinine Ratio 8 Ratio (12-20); Bilirubin,Total 0.8 mg/dL (0.3-1.2); Blood Urea Nitrogen 7 mg/dL (9-23); Calcium 8.4 mg/dL (8.3-10.6); Calcium (Corrected) 8.6 mg/dL (8.5-10.1); Carbon Dioxide 27.5 mMol/L (20.0-31.0); Chloride 104 mMol/L (98-107); Creatinine (Component) 0.9 mg/dL (0.6-1.3); Estimated Creatinine Clearance 120.5 mL/min (>60); Globulin 2.0 gm/dL (2.3-3.5); Glucose 123 mg/dL (74-106); Magnesium 1.8 mg/dL (1.6-2.6); Osmolality,Calculated 274 (275-295); Phosphorous 2.8 mg/dL (2.4-5.1); Potassium 4.5 mMol/L (3.4-5.1); Sodium 138 mMol/L (136-145); Total Protein 5.8 gm/dL (5.7-8.2); eGFR > 60 See Note
[2024-11-04 08:00] VITALS: BP 129/76; PULSE 102; RESP 18; TEMP 36.8; O2SAT 98
[2024-11-04] MEDS: DOCUSATE SOD 100 MG CAPSULE PO (09:12)
[2024-11-04] MEDS: cefTRIAXone/D5w 1gm IV premix 1 GM/50 ML BAG IV (09:13)
--- NOTE | 2024-11-04 10:34 | PD.SURPROG ---
Documentation for date of: 11/04/24 Subjective Subjective Narrative: Patient is seen and examined. His pain is improving Exam Vital Signs Temp Pulse Resp BP Pulse Ox O2 Del Method O2 Flow Rate 98.3 F 102 H 18 129/76 98 Room Air 4 11/04/24 08:00 11/04/24 08:00 11/04/24 08:00 11/04/24 08:00 11/04/24 08:00 11/04/24 08:00 11/03/24 23:40 Constitutional Constitutional: no acute distress Routine Abdominal Exam Comments: Abdomen is soft and nondistended. Incisions are clean, dry and intact Assessment & Plan Assessment Additional comments: Postop day #1 status post laparoscopic appendectomy Plan Discharge home PROCEDURES: Procedures Laparoscopic appendectomy
--- NOTE | 2024-11-04 10:39 | ESDS_ITS ---
<Statement entered by Treva Randall MD - 11/11/24 17:36> I reviewed above note and agree with findings and plans. I have also personally examined the patient with medicine team and went over assessment and plan with medical team including advisory internship and resident physician. <Statement entered by Meenu Vazquez MD - 11/04/24 20:33> I discussed with and supervised the advisory internship physician who took care of this patient. I personally saw and examined the patient and discussed the assessment and plan with the entire medicine team, including my attending Dr. Randall, I agree with most of the assessment and plan as documented below Meenu Vazquez M.D. PGY-3 Planned Discharge Date 11/04/24 DS: Providers Provider Date of admission: 11/03/24 01:11 Primary care physician: Physician Marielle Primary/Family Admitting Provider: Abigail Bay MD Attending Provider on Admission: Treva Randall MD Consults: 11/03/24 01:10 Consult to Cardiology Routine Comment: Appendicits, surgical clearance, Hx of [place]/HTN Consulting Provider: Cam Serrato 11/03/24 01:11 Consult to General Surgery Stat Comment: Acute Appendicits Consulting Provider: Rudy Blum Attending Provider on DC: Dr. Prakash PEDROZA Discharging Provider: Dr. Prakash MD DS: Diagnosis Problem List Completed Was Problem List Reviewed/Reconciled?: Yes Hospital Course Hospital Course Hospital course: Reason for Admission Acute appendicitis Pertinent History * Structural congenital heart defect * Hypertension Hospital Course The patient presented with acute abdominal pain and was diagnosed with acute appendicitis. General surgery was consulted, and the patient underwent a laparoscopic appendectomy. Cardiology was consulted due to his reported history of congenital heart defect. Echocardiogram showed an ejection fraction of 60%, and he was cleared for surgery. He received prophylactic antibiotics with ceftriaxone and metronidazole. Postoperatively, the patient remained afebrile, with a downtrending white blood cell count and no complications. He tolerated diet, ambulated, and had adequate pain control. He was noted to have laboratory findings concerning for pre-diabetes. Outpatient follow-up and further testing were recommended. The patient was clinically stable and safe for discharge. Pertinent Findings * Acute appendicitis, status post laparoscopic appendectomy * Normal cardiac function (EF 60%) * Possible pre-diabetes (to be evaluated outpatient) Discharge Diagnoses * Acute appendicitis, status post laparoscopic appendectomy * Structural congenital heart defect (patient reported) * HF with preserved EF (EF 60-65% * Hypertension * Anxiety * Pre-diabetes (new finding, outpatient workup pending) Discharge Medications * Addison q8hr for pain * Aspirin 81 mg qd * atorvastatin 20mg qd * metoprolol 25 mg qd * Continue home antihypertensive(s) and other chronic medications Follow-Up / Recommendations * General Surgery: follow-up in 1?2 weeks for post-operative evaluation * Primary Care: follow-up in 1 week for routine care and outpatient testing for diabetes * Activity: may return to work on Friday as tolerated * Wound Care: keep surgical site clean and dry; monitor for signs of infection * Return Precautions: fever, worsening abdominal pain, nausea/vomiting, drainage or redness at incision site Plan discussed with , Dr Vazquez, and Dr. Prakash Azar MD PGY1 Time Spent with Patient Time attestation: Total time spent providing and/or coordinating discharge services: Time spent: Greater than 30 minutes Exam Vital Signs Temp Pulse Resp BP Pulse Ox O2 Del Method O2 Flow Rate 98.3 F 102 H 18 129/76 98 Room Air 4 11/04/24 08:00 11/04/24 08:00 11/04/24 08:00 11/04/24 08:00 11/04/24 08:00 11/04/24 08:00 11/03/24 23:40 Narrative Exam General: Yound no acute distress, cooperative HEENT: NCAT, No JVD noted. Mucosa moist. Pupils are equal and reactive to light bilaterally Cardiovascular: Normal S1 and S2. Regular rate and rhythm. Respiratory: Lungs are clear to auscultation bilaterally. No wheezing or crackles heard. Abdomen: soft nontended non distended. no rebound, no guarding, laproscopic incisions intact with dermabond. Skin: Warm to touch, dry, no rashes noted Musculoskeletal: No gross injuries. Able to move all 4 extremities. No pitting edema Neuro: Alert and oriented x3. No focal neuro deficits. Psych: Normal affect and mood Discharge Plan Plan Patient Disposition: HOME (Self Care) Prescriptions/Referrals Prescriptions/Med Rec: New hydrocodone-acetaminophen 5-325 mg Tablet 1 tab PO Q8HR MDD 3 PRN (Reason: Pain 4-6) 3 Days Qty: 9 0RF Continued buspirone 5 mg Tablet 5 mg PO BID atorvastatin 20 mg Tablet 20 mg PO QDAY aspirin 81 mg Tablet,Delayed Release (Dr/Ec) 81 mg PO QDAY metoprolol succinate 25 mg Tablet Extended Release 24 Hr 25 mg PO QDAY Referrals: Cam Serrato MD [Physician, Cardiology] No Primary/Family,Physician [Primary Care Provider] Patient/Caregiver Discharge Instructions Discharge Activity: activity as tolerated Other Discharge Activity Instructions:: Return to physical activity gradually. Avoid lifting heavy objects for about 2 weeks. Take pain medication as needed. Resume previous medications. Follow up with cardiology in 1-2 weeks for further workup of underlying cardiac disease. May shower in 24 hours. Avoid lifting, straining, pulling or pushing for 4 weeks. May take over the counter laxatives if no bowel movement in 2 days. Follow up with Dr. Blum in 2 weeks, call [phone] for an appointment. May have clear liquids today, advance diet as tolerated tomorrow. Education Materials: What Is Appendicitis?, Discharge Instructions for ..., Preventing Surgical Site Infections Print Language: Croatian Activity Restrictions/Additional Instructions: May shower in 24 hours. Avoid lifting, straining, pulling or pushing for 4 weeks. May take over the counter laxatives if no bowel movement in 2 days. Follow up with Dr. Blum in 2 weeks, call [phone] for an appointment. Stand Alone Forms: Renetta Award Info., Patient Portal Info Letter, Work/Release Restrictions Discharge Order Discharge Orders: Discharge (Routine); Ordered 11/04/24 Ordered By: Meenu Vazquez Quality Discharge Quality Measures VTE prophylaxis
[2024-11-04 12:00] VITALS: BP 130/85; PULSE 90; RESP 17; TEMP 36.6; O2SAT 98
== END 2024-11-04 12:30 | disposition home or self-care (01) ==
LOC: SERX 11-03 01:02 → SERHOLD 11-03 02:36 → S3NX 11-03 06:07 → SERHOLD 11-04 06:39 → S3NX 11-04 06:40
PROVIDERS: Physician Assistant; Student in an Organized Health Care Education/Training Program; Surgery; Admitting Provider Student in an Organized Health Care Education/Training Program; Emergency Provider Emergency Medicine; Visit Provider Internal Medicine
PROC: 0DTJ4ZZ Resection of Appendix, Percutaneous Endoscopic Approach (ICD-10-PCS; CPT 44970; principal; 2024-11-03 10:30)
DX: K35.30 Acute appendicitis with localized peritonitis, without perforation or gangrene (principal); I42.4 Endocardial fibroelastosis; F41.9 Anxiety disorder, unspecified; R01.1 Cardiac murmur, unspecified; I11.0 Hypertensive heart disease with heart failure; I50.30 Unspecified diastolic (congestive) heart failure; R73.03 Prediabetes; I31.39 Other pericardial effusion (noninflammatory); I25.10 Atherosclerotic heart disease of native coronary artery without angina pectoris
CPT/HCPCS: 44970; 36415; 71045; 74177; 80053; 80061; 80307; 81001; 82150; 83036; 83605; 83735; 83880; 84100; 84145; 84439; 84443; 84484; 85025; 85610; 85730; 87040; 93005; 93225; 93306; 96365; 96366; 96375; 96376; 99285; A4217; A4649; G0378; J0131; J0694; J0696; J1100; J1171; J2250; J2270; J2371; J2405; J2470; J2704; J3010; J3475; J3490; J7030; Q9967; A9270; J1836